=== PATIENT | male | born 1975 | race Caucasian/White ===

== ENCOUNTER 2017-03-11 16:48 | Emergency (ER) | payer OTHER ==
[~2017-03-11] VITALS: Ht 167.6 cm; Wt 80.0 kg
[~2017-03-11 16:48] MED LIST: ACET-141 GTB; ACET-2047 GTB; ATEN-51 GTB; BISA10SU58 PR; CRAN425C GTB; DOCU-144 GTB; HYDR-3498 GTB; KEP100S GTB; LORA1TAB IM*; MAGN400O4 GTB; NA P118E PR; PHEN100O4 GTB; SYN15 GTB; TRAZ50TA18 GTB
[2017-03-11 16:58] VITALS: Ht 167.6 cm; Wt 80.0 kg
[2017-03-11] MEDS ORDERED: SOD CHLORIDE 0.9% 1,000 ML IV STA (17:09)
[2017-03-11] MEDS ORDERED: AMLO2.5T78 GTB (17:32)
[2017-03-11] MEDS ORDERED: TOPI25TA38 GTB (17:33)
[2017-03-11] MEDS ORDERED: CHOL10009 GTB (17:34)
[2017-03-11] MEDS ORDERED: KEP100S GTB (17:35)
[2017-03-11] MEDS ORDERED: LEVO75TA65 GTB (17:35)
[2017-03-11] MEDS ORDERED: ACET-2047 GTB (17:36)
--- NOTE | 2017-03-11 17:36 | RADRPT ---
PROCEDURE: XR Chest. CLINICAL INDICATION: Chest pain TECHNIQUE: AP view of the chest was performed. COMPARISON: May 04, 2015 FINDINGS: The cardiomediastinal silhouette is within normal limits. The lungs are clear. No signs of pleural f luid or pneumothorax are seen. The osseous structures and soft tissues are unremarkable. IMPRESSION: No evidence for active cardiopulmonary disease. No interval change. RPTAT: QQ .Radha Stephens MD, MD Date Time Electronically viewed and signed by .Radha Stephens MD, on 03/11/2017 17:35 .F/
[2017-03-11] MEDS ORDERED: ACET-141 PO (17:37)
[2017-03-11] MEDS ORDERED: LEVETIRACETAM 1000 MG (PMX) 100 ML IVPB ONE (18:00)
[2017-03-11 18:08] LABS: BASOPHILS % 0.1 % (0.0-2.0); HEMATOCRIT 47.7 % (42.0-52.0); HEMOGLOBIN 17.4 g/dl (14.0-18.0); LYMPHOCYTES # 0.6 10^3/ul (0.8-2.9); MEAN CORPUSCULAR HEMOGLOBIN 33.7 pg (29.0-33.0); MEAN CORPUSCULAR HGB CONC 36.5 g/dl (32.0-37.0); MEAN CORPUSCULAR VOLUME 92.4 fl (82.0-101.0); MEAN PLATELET VOLUME 10.5 fl (7.4-10.4); MONOCYTE # 0.7 10^3/ul (0.3-0.9); MONOCYTES % 6.8 % (0.0-11.0); NEUTROPHILS % 86.8 % (39.0-77.0); PLATELET COUNT 190 10^3/UL (140-415); RED BLOOD COUNT 5.16 10^6/ul (4.70-6.10); RED CELL DISTRIBUTION WIDTH 12.2 % (11.5-14.5); WHITE BLOOD COUNT 10.3 10^3/ul (4.8-10.8)
[2017-03-11 18:26] LABS: INR 0.99; PROTIME 13.1 Sec (12.2-14.2)
[2017-03-11 18:29] LABS: PARTIAL THROMBOPLASTIN TIME 31.9 Sec (25.0-35.0)
[2017-03-11 18:30] LABS: ALANINE AMINOTRANSFERASE 24 IU/L (13-69); ALBUMIN 4.2 g/dl (3.3-4.9); ALBUMIN/GLOBULIN RATIO 1.13; ALKALINE PHOSPHATASE 103 IU/L (42-121); ANION GAP 16 (8-16); ASPARTATE AMINO TRANSFERASE 28 IU/L (15-46); BILIRUBIN,INDIRECT 0.7 mg/dl (0-1.1); BILIRUBIN,TOTAL 0.7 mg/dl (0.2-1.3); BLOOD UREA NITROGEN 16 mg/dl (7-20); CALCIUM 9.1 mg/dl (8.4-10.2); CARBON DIOXIDE 20 mmol/L (21-31); CHLORIDE 109 mmol/L (97-110); CREATININE 0.54 mg/dl (0.61-1.24); GLUCOSE 167 mg/dl (70-220); POTASSIUM 3.7 mmol/L (3.5-5.1); SODIUM 141 mmol/L (135-144); TOTAL PROTEIN 7.9 g/dl (6.1-8.1)
[2017-03-11 18:41] LABS: B-TYPE NATRIURETIC PEPTIDE 104 PG/ML (0-125); TROPONIN-I < 0.012 ng/ml (0.00-0.12)
--- NOTE | 2017-03-11 19:16 | ERD ---
ER Documentation Chief Complaint Date/Time DATE: 03/11/17 TIME: 19:13 Chief Complaint Seizue, withnessed by sister ARLIN This is a 41-year-old male with a history of previous anoxic brain injury, and residual neuro deficits who presents to the emergency room for evaluation of seizures. The patient does have a history of seizures and is on Dilantin at his nursing facility. The patient had a seizure which was witnessed by his sister today the last approximately 1 minute which was described as a generalized tonic-clonic seizure. The patient's sister is unsure whether this patient is getting his Dilantin or not ROS All systems reviewed and are negative except as per history of present illness. Medications Home Meds Reported Medications Acetaminophen* (Acetaminophen*) 500 MG Extra Strength Tablet, 1000 MG PO Q4 Y for MODERATE PAIN LEVEL 4-6, TAB 03/11/17 Acetaminophen* (Acetaminophen*) 650 Mg Tablet, 650 MG GTB Q4 Y for MILD PAIN LEVEL 1-3, #30 TAB 03/11/17 Levetiracetam* (Keppra* (Ped)) 100 Mg/Ml Liq, 1000 MG GTB BID for 30 Days, BOTTLE 03/11/17 Levothyroxine Sodium* (Levoxyl*) 75 Mcg Tablet, 75 MCG GTB BEFORE BREAKFAST, # 30 TAB 03/11/17 Cholecalciferol (Vitamin D3) 1,000 Unit Capsule, 1000 UNIT GTB DAILY, CAP 03/11/17 Topiramate* (Topamax*) 25 Mg Tablet, 25 MG GTB BID, TAB 03/11/17 Amlodipine Besylate* (Amlodipine Besylate*) 2.5 Mg Tablet, 2.5 MG GTB DAILY, # 30 TAB 03/11/17 Acetaminophen* (Acetaminophen*) 650 Mg Tablet, 650 MG GTB BID Y for PAIN AND OR ELEVATED TEMP, TAB 05/04/15 Trazodone Hcl* (Trazodone Hcl*) 50 Mg Tablet, 25 MG GTB HS, TAB 05/04/15 Hydrocodone Bit-Acetaminophen* ([place]*) 5-325 Mg Tab, 1 TAB GTB Q8 Y for PAIN, TAB 05/04/15 Magnesium Hydroxide* (Milk Of Magnesia*) 400 Mg/5 Ml Oral.susp, 30 ML GTB DAILY Y for CONSTIPATION, ML 05/04/15 Na Phos,M-B/Na Phos,Di-Ba* (Fleet* Enema) 118 Ml Enema, 118 ML IL Q48H Y for CONSTIPATION, ENEMA 05/04/15 Bisacodyl* (Dulcolax*) 10 Mg/Supp.rect Supp.rect, 10 MG IL Q24H Y for CONSTIPATION, SUPP.RECT 05/04/15 Cranberry Extract (Cranberry) 425 Mg Capsule, 425 MG GTB TID 05/04/15 Docusate Sodium* (Colace*) 100 Mg Capsule, 200 MG GTB QHS, CAP 05/04/15 Lorazepam* (Lorazepam*) 1 Mg Tablet, 1 MG IM* Q6 Y for SEIZURES, TAB 05/04/15 Atenolol* (Atenolol*) 25 Mg Tablet, 25 MG GTB BID, TAB 05/04/15 Discontinued Reported Medications Acetaminophen* (Acetaminophen*) 500 MG Extra Strength Tablet, 500 MG GTB Q4H Y for PAIN AND OR ELEVATED TEMP, TAB 05/04/15 Acetaminophen* (Acetaminophen*) 650 Mg Tablet, 650 MG GTB Q6 Y for PAIN AND OR ELEVATED TEMP, TAB 05/04/15 Levothyroxine Sodium* (Synthroid*) 150 Mcg Tablet, 150 MCG GTB AC BREAKFAST, TAB 05/04/15 Levetiracetam* (Keppra* (Ped)) 100 Mg/Ml Liq, 500 MG GTB BID for 30 Days, BOTTLE 05/04/15 Phenytoin* (Dilantin* Susp) 100 Mg/4 Ml Oral.susp, 300 MG GTB DAILY for 30 Days , BOTTLE 05/04/15 Allergies Allergies: Coded Allergies: No Known Drug Allergy (Verified Allergy, Intermediate, NONE, 03/11/17) PMhx/Soc History of Surgery: Yes (GTUBE PLACEMENT) Anesthesia Reaction: No Hx Neurological Disorder: Yes (SEIZURES, ) Hx Respiratory Disorders: No Hx Cardiac Disorders: No Hx Psychiatric Problems: No Hx Miscellaneous Medical Probl: No Hx Alcohol Use: Yes Hx Substance Use: Yes (ALCOHOLIC) Hx Tobacco Use: Yes Smoking Status: Former smoker Physical Exam Vitals Vital Signs Date Time Temp Pulse Resp B/P Pulse Ox O2 Delivery O2 Flow Rate FiO2 03/11/17 19:00 76 21 114/86 100 Room Air 03/11/17 18:30 81 22 119/93 99 Room Air 03/11/17 16:58 97.8 88 20 107/83 99 Physical Exam INITIAL VITAL SIGNS: Reviewed by me GENERAL: The patient frail-appearing male, mild contractures of the upper and lower extremities, HEENT: Pupils equal, round, and reactive to light. EOMI. There is no scleral icterus. NECK: Tracheostomy scar, C-spine is soft and supple, there is no meningismus. There is no cervical lymphadenopathy. LUNGS: Clear to auscultation bilaterally. There are no rales, wheezes or rhonchi. HEART: Regular rate and rhythm, no murmurs, clicks, rubs or gallops. ABDOMEN: PEG tube, soft, non-tender, non-distended. There are bowel sounds in all four quadrants. No rebound or guarding. EXTREMITIES: There is no peripheral cyanosis or edema. No focal swelling or erythema. NEUROLOGICAL: The patient moves all four extremities with 5/5 strength. Cranial nerves II - XII are intact. Normal gait. Alert and oriented SKIN: There is no apparent rash or petechiae. HEME/LYMPHATIC: There is no evidence of excessive bruising or lymphedema. PSYCHIATRIC: The patient does not appear anxious or depressed. Result Diagram: 03/11/17 1755 03/11/17 175 Results 24 hrs Laboratory Tests Test 03/11/17 17:55 White Blood Count 10.310^3/ul Red Blood Count 5.1610^6/ul Hemoglobin 17.4g/dl Hematocrit 47.7% Mean Corpuscular Volume 92.4fl Mean Corpuscular Hemoglobin 33.7pg Mean Corpuscular Hemoglobin Concent 36.5g/dl Red Cell Distribution Width 12.2% Platelet Count 47394^3/UL Mean Platelet Volume 10.5fl Neutrophils % 86.8% Lymphocytes % 6.0% Monocytes % 6.8% Eosinophils % 0.0% Basophils % 0.1% Nucleated Red Blood Cells % 0.0/100WBC Neutrophils # (Manual) 8.910^3/ul Lymphocytes # 0.610^3/ul Monocytes # 0.710^3/ul Eosinophils # 0.010^3/ul Basophils # 0.010^3/ul Nucleated Red Blood Cells # 0.010^3/ul Prothrombin Time 13.1Sec Prothrombin Time Ratio 1.0 INR International Normalized Ratio 0.99 Activated Partial Thromboplast Time 31.9Sec Sodium Level 141mmol/L Potassium Level 3.7mmol/L Chloride Level 109mmol/L Carbon Dioxide Level 20mmol/L Anion Gap 16 Blood Urea Nitrogen 16mg/dl Creatinine 0.54mg/dl Glucose Level 167mg/dl Lactic Acid Level 2.2mmol/L Calcium Level 9.1mg/dl Total Bilirubin 0.7mg/dl Direct Bilirubin 0.00mg/dl Indirect Bilirubin 0.7mg/dl Aspartate Amino Transf (AST/SGOT) 28IU/L Alanine Aminotransferase (ALT/SGPT) 24IU/L Alkaline Phosphatase 103IU/L Troponin I < 0.012ng/ml B-Type Natriuretic Peptide 104PG/ML Total Protein 7.9g/dl Albumin 4.2g/dl Globulin 3.70g/dl Albumin/Globulin Ratio 1.13 Phenytoin (Dilantin) Level < 3.0ug/ml Current Medications Medications (Trade) Dose Ordered Sig/Nahomy Route PRN Reason Start Time Stop Time Status Last Admin Dose Admin Sodium Chloride 1,000 ml @ 1,000 mls/hr Q1H STAT IV 03/11/17 17:09 03/11/17 18:08 DC 03/11/17 18:00 Levetiracetam (Keppra 1,000mg/ 100ml (Pmx)) 100 ml @ 400 mls/hr ONCE ONCE IVPB 03/11/17 18:00 03/11/17 18:14 DC 03/11/17 18:43 Procedures/MDM Chest X-ray 1V Interpreted by me: Soft Tissue: No acute abnormalities Bones: No acute abnormalities Mediastinum/Cardiac Silhouette/Lungs: [No acute abnormalities] This 41-year-old male presents to the ER for evaluation of seizure activity. The patient does have a history of epilepsy and does suffer from a previous anoxic brain injury. The patient is supposed to be taking Dilantin. I did check her Dilantin levels however they are subtherapeutic. The patient was given 1 g of Keppra in the emergency room prior to his Dilantin level returning. The patient has had no seizure activity in the emergency room. The patient will be discharged at this time back to his nursing facility with instructions to the facility to get this patient's Dilantin as scheduled. Departure Diagnosis: Primary Impression: Seizure disorder Additional Impressions: Developmental delay Subtherapeutic serum dilantin level Condition: Stable AL FORD DO Mar 11, 2017 19:16
[2017-03-11 20:37] VITALS: BP 113/87; PULSE 75; RESP 22; TEMP 97.8
== END 2017-03-11 21:09 | disposition home or self-care (01) ==
LOC: E/R 17:18
DX: G40.909 Epilepsy, unspecified, not intractable, without status epilepticus (principal); R79.1 Abnormal coagulation profile; Z87.891 Personal history of nicotine dependence
CPT/HCPCS: 36415; 71010; 80053; 80185; 83605; 83880; 84484; 85025; 85610; 85730; 96374; J1953; J7030; Z7502

== ENCOUNTER 2017-03-13 23:37 | Inpatient (IN) | payer OTHER ==
[~2017-03-13] VITALS: Ht 167.6 cm; Wt 77.4 kg
[~2017-03-13 23:37] MED LIST changes: -ACET-141 GTB; +ACET-141 PO; +AMLO2.5T78 GTB; +CHOL10009 GTB; +LEVO75TA65 GTB; -PHEN100O4 GTB; -SYN15 GTB; +TOPI25TA38 GTB
[2017-03-13] MEDS ORDERED: SOD CHLORIDE 0.9% 500 ML IV STA (23:40)
[2017-03-13] MEDS ORDERED: LEVETIRACETAM 1000 MG (PMX) 100 ML IVPB STA (23:40)
[2017-03-14] VITALS (9 sets, daily range): BP systolic 122–134; BP diastolic 78–83; PULSE 64–100; RESP 16–22; TEMP 100.8; Ht 167.6 cm; Wt 77.4 kg
[2017-03-14 01:03] LABS: WHITE BLOOD COUNT 9.7 10^3/ul (4.8-10.8)
[2017-03-14 01:04] LABS: BASOPHILS % 0.2 % (0.0-2.0); EOSINOPHILS # 0.1 10^3/ul (0.0-0.5); EOSINOPHILS % 0.5 % (0.0-7.0); HEMATOCRIT 46.1 % (42.0-52.0); HEMOGLOBIN 16.7 g/dl (14.0-18.0); LYMPHOCYTES # 1.7 10^3/ul (0.8-2.9); LYMPHOCYTES % 17.6 % (15.0-51.0); MEAN CORPUSCULAR HEMOGLOBIN 33.7 pg (29.0-33.0); MEAN CORPUSCULAR HGB CONC 36.2 g/dl (32.0-37.0); MEAN CORPUSCULAR VOLUME 92.9 fl (82.0-101.0); MONOCYTE # 1.4 10^3/ul (0.3-0.9); MONOCYTES % 14.2 % (0.0-11.0); PLATELET COUNT 180 10^3/UL (140-415); POSITIVE DIFF @See below; RED BLOOD COUNT 4.96 10^6/ul (4.70-6.10); RED CELL DISTRIBUTION WIDTH 11.9 % (11.5-14.5)
[2017-03-14 01:09] LABS: MEAN PLATELET VOLUME 12.7 fl (7.4-10.4)
[2017-03-14 01:22] LABS: CREATININE 0.56 mg/dl (0.61-1.24); POTASSIUM 4.2 mmol/L (3.5-5.1)
[2017-03-14] MEDS ORDERED: PHENYTOIN 500 MG in SOD CHLORIDE 0.9% 100 ML IV ONE (02:30)
--- NOTE | 2017-03-14 05:38 | ERD ---
ER Documentation Chief Complaint Date/Time DATE: 03/14/17 TIME: 05:32 Chief Complaint Sent from [facility] for tonic-clonic sz witnessed less than 1 min HPI This 41-year-old male was sent from his facility because staff noticed generalized tonic-clonic seizure lasting less than 1 minute. No other reports of any other symptoms or abnormalities reported. Patient is nonverbal at baseline. He is on Keppra and Dilantin for his seizure disorder. No trauma reported. ROS Unobtainable Medications Home Meds Reported Medications Acetaminophen* (Acetaminophen*) 500 MG Extra Strength Tablet, 1000 MG PO Q4 Y for MODERATE PAIN LEVEL 4-6, TAB 03/11/17 Acetaminophen* (Acetaminophen*) 650 Mg Tablet, 650 MG GTB Q4 Y for MILD PAIN LEVEL 1-3, #30 TAB 03/11/17 Levetiracetam* (Keppra* (Ped)) 100 Mg/Ml Liq, 1000 MG GTB BID for 30 Days, BOTTLE 03/11/17 Levothyroxine Sodium* (Levoxyl*) 75 Mcg Tablet, 75 MCG GTB BEFORE BREAKFAST, # 30 TAB 03/11/17 Cholecalciferol (Vitamin D3) 1,000 Unit Capsule, 1000 UNIT GTB DAILY, CAP 03/11/17 Topiramate* (Topamax*) 25 Mg Tablet, 25 MG GTB BID, TAB 03/11/17 Amlodipine Besylate* (Amlodipine Besylate*) 2.5 Mg Tablet, 2.5 MG GTB DAILY, # 30 TAB 03/11/17 Acetaminophen* (Acetaminophen*) 650 Mg Tablet, 650 MG GTB BID Y for PAIN AND OR ELEVATED TEMP, TAB 05/04/15 Trazodone Hcl* (Trazodone Hcl*) 50 Mg Tablet, 25 MG GTB HS, TAB 05/04/15 Hydrocodone Bit-Acetaminophen* ([place]*) 5-325 Mg Tab, 1 TAB GTB Q8 Y for PAIN, TAB 05/04/15 Magnesium Hydroxide* (Milk Of Magnesia*) 400 Mg/5 Ml Oral.susp, 30 ML GTB DAILY Y for CONSTIPATION, ML 05/04/15 Na Phos,M-B/Na Phos,Di-Ba* (Fleet* Enema) 118 Ml Enema, 118 ML AL Q48H Y for CONSTIPATION, ENEMA 05/04/15 Bisacodyl* (Dulcolax*) 10 Mg/Supp.rect Supp.rect, 10 MG AL Q24H Y for CONSTIPATION, SUPP.RECT 05/04/15 Cranberry Extract (Cranberry) 425 Mg Capsule, 425 MG GTB TID 05/04/15 Docusate Sodium* (Colace*) 100 Mg Capsule, 200 MG GTB QHS, CAP 05/04/15 Lorazepam* (Lorazepam*) 1 Mg Tablet, 1 MG IM* Q6 Y for SEIZURES, TAB 05/04/15 Atenolol* (Atenolol*) 25 Mg Tablet, 25 MG GTB BID, TAB 05/04/15 Discontinued Reported Medications Acetaminophen* (Acetaminophen*) 500 MG Extra Strength Tablet, 500 MG GTB Q4H Y for PAIN AND OR ELEVATED TEMP, TAB 05/04/15 Acetaminophen* (Acetaminophen*) 650 Mg Tablet, 650 MG GTB Q6 Y for PAIN AND OR ELEVATED TEMP, TAB 05/04/15 Levothyroxine Sodium* (Synthroid*) 150 Mcg Tablet, 150 MCG GTB AC BREAKFAST, TAB 05/04/15 Levetiracetam* (Keppra* (Ped)) 100 Mg/Ml Liq, 500 MG GTB BID for 30 Days, BOTTLE 05/04/15 Phenytoin* (Dilantin* Susp) 100 Mg/4 Ml Oral.susp, 300 MG GTB DAILY for 30 Days , BOTTLE 05/04/15 Allergies Allergies: Coded Allergies: No Known Drug Allergy (Verified Allergy, Intermediate, NONE, 03/11/17) PMhx/Soc History of Surgery: Yes (GTUBE PLACEMENT) Anesthesia Reaction: No Hx Neurological Disorder: Yes (Encepalopathy, TBI, SE) Hx Respiratory Disorders: Yes (Respiratory Failure) Hx Cardiac Disorders: No Hx Psychiatric Problems: Yes (Major Depressive Disorder, Anxiety) Hx Alcohol Use: No Hx Substance Use: No Hx Tobacco Use: Yes Smoking Status: Never smoker Physical Exam Vitals Vital Signs Date Time Temp Pulse Resp B/P Pulse Ox O2 Delivery O2 Flow Rate FiO2 03/14/17 04:30 108 18 121/86 100 Room Air 03/14/17 02:31 98.2 102 18 128/83 99 Room Air 03/13/17 23:38 98.7 106 18 129/83 97 Physical Exam Const: [] Head: Atraumatic Eyes: Normal Conjunctiva ENT: Normal External Ears, Nose and Mouth. Neck: Full range of motion..~ No meningismus. Resp: Clear to auscultation bilaterally Cardio: Regular rate and rhythm, no murmurs Abd: Soft, non tender, non distended. Normal bowel sounds Skin: No petechiae or rashes Back: No midline or flank tenderness Ext: No cyanosis, or edema Neur: Awake and alert Psych: Normal Mood and Affect Result Diagram: 03/14/17 0010 03/14/17 0010 Results 24 hrs Laboratory Tests Test 03/14/17 00:10 03/14/17 00:25 White Blood Count 9.710^3/ul Red Blood Count 4.9610^6/ul Hemoglobin 16.7g/dl Hematocrit 46.1% Mean Corpuscular Volume 92.9fl Mean Corpuscular Hemoglobin 33.7pg Mean Corpuscular Hemoglobin Concent 36.2g/dl Red Cell Distribution Width 11.9% Platelet Count 59399^3/UL Mean Platelet Volume 12.7fl Neutrophils % 67.0% Lymphocytes % 17.6% Monocytes % 14.2% Eosinophils % 0.5% Basophils % 0.2% Nucleated Red Blood Cells % 0.0/100WBC Neutrophils # (Manual) 6.510^3/ul Lymphocytes # 1.710^3/ul Monocytes # 1.410^3/ul Eosinophils # 0.110^3/ul Basophils # 0.010^3/ul Nucleated Red Blood Cells # 0.010^3/ul Sodium Level 137mmol/L Potassium Level 4.2mmol/L Chloride Level 103mmol/L Carbon Dioxide Level 23mmol/L Anion Gap 15 Blood Urea Nitrogen 13mg/dl Creatinine 0.56mg/dl Glucose Level 95mg/dl Calcium Level 9.0mg/dl Phenytoin (Dilantin) Level < 3.0ug/ml Bedside Glucose 108mg/dL Current Medications Medications (Trade) Dose Ordered Sig/Nahomy Route PRN Reason Start Time Stop Time Status Last Admin Dose Admin Sodium Chloride 500 ml @ 500 mls/hr Q1H STAT IV 03/13/17 23:40 03/14/17 00:39 DC 03/14/17 00:18 Levetiracetam 100 ml @ 400 mls/hr ONCE STAT IVPB 03/13/17 23:40 03/13/17 23:54 DC 03/14/17 00:44 Phenytoin/Sodium Chloride (Dilantin/NS) 110 ml @ 220 mls/hr ONCE ONCE IV 03/14/17 02:30 03/14/17 02:59 DC 03/14/17 02:31 Procedures/MDM Recurrent seizure with subtherapeutic Dilantin level. Patient did not seize in the emergency room and had stable vital signs. He was loaded with a gram of Keppra and 1/2 g of Dilantin. Going to discharge him back to his facility with laboratories followed by his primary care doctor or neurologist with instructions to contact or see them within the next day or 2. Departure Diagnosis: Primary Impression: Subtherapeutic phenytoin level Additional Impression: Seizure Condition: Stable Patient Instructions: Seizure, Recurrent [Adult] Additional Instructions: Call your primary care doctor TOMORROW for an appointment during the next 1-2 days.See the doctor sooner or return here if your condition worsens before your appointment time. QUOC BRODY DO Mar 14, 2017 05:38
[2017-03-14] MEDS ORDERED: SODIUM CHLORIDE 0.9% 1L BAG IV* STA (06:34)
[2017-03-14] MEDS ORDERED: CEFEPIME 2GM/50 ML (PMX) 50 ML IVPB ONE (07:00)
--- NOTE | 2017-03-14 07:17 | RADRPT ---
PROCEDURE: Chest Radiograph. CLINICAL INDICATION: Sepsis TECHNIQUE: Single frontal chest radiograph. COMPARISON: Chest radiograph 03/11/2017 FINDINGS: The patient is moderately rotated. Heart size is poorly evaluated. The cardiomediastinal silhouette is grossly within normal limits. Lung volumes are moderately decreased in there is basilar atelecta sis and central compressive changes. Low lung volumes limit evaluation for confluent infiltrate.. The bones are intact. IMPRESSION: 1. Low lung volumes with basilar atelectasis and central compressive changes. RPTAT: HJBF .Jeff Ng MD, MD Date Time Electronically viewed and signed by .Jeff Ng MD, on 03/14/2017 07:16 .B/
[2017-03-14] MEDS ORDERED: ONDANSETRON 4 MG INJ IV PRN ×2 (07:30→09:30)
[2017-03-14] MEDS ORDERED: ACETAMINOPHEN 325 MG TAB PO PRN (07:30)
[2017-03-14 08:09] LABS: ADD UMIC NO; UR ASCORBIC ACID NEGATIVE (NEGATIVE); UR BILIRUBIN (Dip) NEGATIVE (NEGATIVE); UR BLOOD (Dip) NEGATIVE (NEGATIVE); UR CLARITY CLEAR (CLEAR); UR COLOR YELLOW (YELLOW); UR GLUCOSE (Dip) NEGATIVE (NEGATIVE); UR KETONES (Dip) NEGATIVE (NEGATIVE); UR LEUKOCYTE ESTERASE (Dip) NEGATIVE Leu/ul (NEGATIVE); UR NITRITE (Dip) NEGATIVE (NEGATIVE); UR SPECIFIC GRAVITY (Dip) 1.009 (1.003-1.030); UR TOTAL PROTEIN (Dip) NEGATIVE (NEGATIVE); UR UROBILINOGEN (Dip) 1+ mg/dL (NEGATIVE)
[2017-03-14] MEDS ORDERED: SOD CHLORIDE 0.9% 1,000 ML IV SCH (09:24)
[2017-03-14] MEDS ORDERED: LORAZEPAM 2 MG INJ ONE (09:29)
[2017-03-14] MEDS ORDERED: HYDROCODONE/APAP (5/325) TAB GTB PRN (09:30)
[2017-03-14] MEDS ORDERED: MAGNESIUM HYDROXIDE 30ML CUP GTB PRN (09:30)
[2017-03-14] MEDS ORDERED: NA PHOSPHATE/BIPHOS 133 ML ENEMA PR PRN (09:30)
[2017-03-14] MEDS ORDERED: NACL 0.9% 3 ML SYG IV SCH (09:30)
[2017-03-14] MEDS ORDERED: morphine 2 MG INJ IV PRN (09:30)
[2017-03-14] MEDS ORDERED: BISACODYL 10 MG SUPP PR PRN (09:30)
[2017-03-14] MEDS: LORAZEPAM 2 MG INJ IV ONE ×2 (09:39→09:44)
--- NOTE | 2017-03-14 09:40 | HP ---
Date/Time of Note Date/Time of Note DATE: 03/14/17 TIME: 09:40 Assessment/Plan VTE Prophylaxis VTE Prophylaxis Intervention: SCD's Lines/Catheters Urinary Cath still in place: No Assessment/Plan Assessment/Plan This is a 41 year old male quadriplegic male admitted with seizures with a sub-therapeutic Dilantin level. 1. Break through Seizure, likely precipitated by subtherapeutic Dilantin level versus possible infectious sources. -Currently patient is having active seizures. He also has a fever. We are going to give Ativan IV now. Patient will be started on 1000 mg IV Keppra twice daily. He had also received a loading dose of Dilantin 500 mg IV in the emergency room. We are going to start Dilantin to 250 mg via G-tube 2 times a day. We will also request a neurology consultation for further recommendations. -Obtain CT brain and EEG study. -Patient will be moved to the telemetry floor for close monitoring. -Keep patient on seizure and aspiration precautions. Obtain Dilantin level in a.m. 2. Febrile illness, unknown etiology. -Obtain pancultures. Start patient on cefepime prophylactically. Antipyretics PRN. 3. 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 -Supportive care. 4. Dysphagia with G-tube feeding. -Due to active seizures, we are going to keep patient n.p.o. at present and will consider starting tube feeding with fiber source in a.m. if there is no further seizure activities. 5. History of respiratory failure previous tracheostomy and closure. Stable saturation in room air. 6. Hypertension. Stable. -Resume home medications 7. Constipation. Stable. -Resume home medications. DVT prophylaxis: SCDs PUD prophylaxis: Pepcid Plan: Patient will be admitted to telemetry. He will be kept on seizure medications and seizure precaution. Patient will have neurology evaluation and will follow recommendations. We will also rule out infectious sources. The rest of the management depend on clinical course, further studies and input from consultants. Approximately 60 minutes was spent on this history and physical. Patient was seen in collaboration with . HPI/ROS Admit Date/Time Admit Date/Time Mar 14, 2017 at 07:23 Hx of Present Illness This is a very unfortunate 41-year-old nonverbal long-term resident with a past medical history of traumatic brain injury followed by anoxic encephalopathy and quadriplegia, G-tube feeding, respiratory failure and tracheostomy which is now closed, seizure disorders, who was brought to the emergency room from [facility] for seizure activity lasted for 2 minutes. In the emergency room, patient was noted with a subtherapeutic Dilantin level and was treated with a loading dose of Dilantin 500 mg IV and 1000 mg IV Keppra. There was no further seizure activities in the emergency room and the plan was to send patient back to long term facility. However, patient developed a fever with a temperature of 101.3 and heart rate 111. Therefore, patient was treated with antibiotics for possible infectious sources and was admitted for further evaluation. Patient was seen in the room 604 and he is currently having active seizure started off with twitching ice, rolling ice to back of head, left upper and lower extremity to chest which then progressed to the whole body and lasted less than 1 minute. His initial labs are unremarkable. ROS Due to patient's current mental status, unable to obtain a 12 point review of system. However, patient does not seem to be in any acute distress other than having active seizures now. PMH/Family/Social Past Medical History See HPI Past Surgical History See HPI Social History Unable to obtain social history at this time. Smoking Status: Former smoker Exam/Review of Systems Vital Signs Vitals Vital Signs Date Time Temp Pulse Resp B/P Pulse Ox O2 Delivery O2 Flow Rate FiO2 03/14/17 08:02 100.8 109 18 122/93 100 Room Air Intake and Output 03/13/17 03/13/17 03/14/17 15:00 23:00 07:00 Intake Total 710 ml Balance 710 ml Exam Exam General: Chronic ill looking male having acute seizures. HEENT: Normocephalic, Atraumatic, No laceration or hematoma; Eyes: PEERL, Conjunctiva clear, Anicteric sclera Neck: Supple without any lymphadenopathy, nontender, no JVD, no carotid bruits, trachea midline, no thyromegaly Cardiac: S1, S2 auscultated, regular rhythm and rate, no mumurs or gallop Pulmonary: Normal respiratory effort. Chest clear to auscultation bilaterally, no adventitious breath sounds GI: Abdomen normal to inspection. Soft, non tender, non- distended, no masses, no rebound tenderness or guarding. Bowel sounds active on all four quadrants Genitourinary: Deferred Extremities: Quadriplegic. Neurologic: Nonverbal with encephalopathy. Skin: Clean,dry, and intact. No ecchymosis, no rashes, or lesions Labs Result Diagram: 03/14/17903/14/179 CAMPOS KEYS NP Mar 14, 2017 09:40
[2017-03-14] MEDS ORDERED: LORAZEPAM 2 MG INJ IV ONE ×2 (10:00)
--- NOTE | 2017-03-14 11:23 | RADRPT ---
PROCEDURE: CT Head without. CLINICAL INDICATION: Sepsis. TECHNIQUE: The study was performed utilizing a multi-slice, multidetector CT scanner. Direct spira l 1 mm axial sections were obtained through the head without the use of intravenous contrast materia l. 1 or more of the following dose reduction techniques were utilized: Automated exposure control, adjustment of the mA and/or kV according to patient's size, iterative reconstruction technique. Co triny and sagittal reformations were obtained. The images were reviewed on a PACS workstation. RADIATION DOSE: CTDIvol: 42.4 mGyDLP: 720.2 mGy-cm COMPARISON: 05/01/2008 FINDINGS: There is no intracranial hemorrhage, extra-axial fluid collection, mass lesion, midline shift or hyd rocephalus. There is moderate prominence of the cerebral sulci, lateral and third ventricles. Ther e is no significant ballooning of the temporal horns. There is mild periventricular and subcortical white matter hypodensity. There is mild arteriosclerotic calcification of the parasellar internal c arotid arteries. The nielsen-white matter differentiation is preserved. The basal cisterns are patent . The midline structures are intact. There is pneumatization of the bilateral petrous apices witho ut evidence of inflammatory changes, normal variant. There is mild hyperostosis frontalis interna, n ormal variant. The orbits, calvarium and extracranial soft tissues are normal in appearance. The vis ualized paranasal sinuses, mastoid air cells and middle ear cavities are normally aerated. IMPRESSION: 1. No acute intracranial abnormality. No intracranial hemorrhage, extra-axial fluid collection, ma ss lesion or hydrocephalous. 2. Moderate peripheral and central cerebral volume loss. 3. Mild periventricular and subcortical white matter hypodensity, likely related to chronic microan giopathic changes. RPTAT: HGAS .Raheel Willingham MD, MD Date Time Electronically viewed and signed by .Raheel Willingham MD, on 03/14/2017 11:19 .S/
[2017-03-14] MEDS ORDERED: PHENYTOIN (100 MG/4 ML) CUP GTB SCH (12:00)
[2017-03-14] MEDS: ATENOLOL 25 MG TAB GTB SCH ×2 (12:07→21:19)
[2017-03-14] MEDS: AMLODIPINE 2.5 MG TAB GTB SCH (12:07)
--- NOTE | 2017-03-14 12:13 | CONS ---
Date/Time of Note Date/Time of Note DATE: 03/14/17 TIME: 12:03 Assessment/Plan Assessment/Plan Chief Complaint/Hosp Course 41 year old male quadriplegic with seizure d/o with G- Tube admitted with breakthrough seizures sub-therapeutic dilantin level. Recommendations: -Additional 500 mg Phenytoin given, as well as Keppra 1 gram load no further seizures since admission -would increase Phenytoin dosing to 200 mg TID, may recheck free and total levels tomorrow continue current dose of Keppra and Topamax if necessary will increase as well -ativan prn seizure activity seizure precautions -infectious work up -will follow Problems: Consultation Date/Type/Reason Admit Date/Time Mar 14, 2017 at 07:23 Date of Consultation: Mar 14, 2017 Type of Consultation: Neurology Reason for Consultation seizure evaluation Referring Provider: CAMPOS KEYS NP Hx of Present Illness 41 year old male quadriplegic non-verbal at baseline , G-Tube with seizure d/o sent from [facility] for seizure activity lasting 2 mins, generalized tonic clonic seizure described. Now back to baseline. Lactic Acid is 1.7 Phenytoin level is less than 3 He is currently on Keppra, Topamax, Dilantin 200 mg BID through G Tube. Head CT: 1. No acute intracranial abnormality. No intracranial hemorrhage, extra-axial fluid collection, mass lesion or hydrocephalous. 2. Moderate peripheral and central cerebral volume loss. 3. Mild periventricular and subcortical white matter hypodensity, likely related to chronic microangiopathic changes. Subjective hx not possible: pt non-verbal, pt critical Social History Smoking Status: Former smoker Exam/Review of Systems Vital Signs Vitals Vital Signs Date Time Temp Pulse Resp B/P Pulse Ox O2 Delivery O2 Flow Rate FiO2 03/14/17 11:51 98.9 90 20 122/83 99 03/14/17 10:35 Room Air Intake and Output 03/13/17 03/13/17 03/14/17 15:00 23:00 07:00 Intake Total 710 ml Balance 710 ml Exam awake and alert briefly tracks examiner unable to follow commands non-verbal CN: CAIN, blinks to threat, right facial asymmetry Motor: some spontaneous movement noted of right arm in plane of the bed otherwise spastic and contracted in all extremities Reflexes: hyperflexic throughout toes upgoing Results Result Diagram: 03/14/17 0010 03/14/17 0010 Results 24 hrs Laboratory Tests Test 03/14/17 00:10 03/14/17 00:25 03/14/17 07:15 03/14/17 09:20 White Blood Count 9.7 Red Blood Count 4.96 Hemoglobin 16.7 Hematocrit 46.1 Mean Corpuscular Volume 92.9 Mean Corpuscular Hemoglobin 33.7 H Mean Corpuscular Hemoglobin Concent 36.2 Red Cell Distribution Width 11.9 Platelet Count 180 Mean Platelet Volume 12.7 #H Neutrophils % 67.0 Lymphocytes % 17.6 Monocytes % 14.2 H Eosinophils % 0.5 Basophils % 0.2 Nucleated Red Blood Cells % 0.0 Neutrophils # (Manual) 6.5 Lymphocytes # 1.7 Monocytes # 1.4 H Eosinophils # 0.1 Basophils # 0.0 Nucleated Red Blood Cells # 0.0 Sodium Level 137 Potassium Level 4.2 Chloride Level 103 Carbon Dioxide Level 23 Anion Gap 15 Blood Urea Nitrogen 13 Creatinine 0.56 L Glucose Level 95 Calcium Level 9.0 Phenytoin (Dilantin) Level < 3.0 L Bedside Glucose 108 Urine Color YELLOW Urine Clarity CLEAR Urine pH 7.0 Urine Specific [place] 1.009 Urine Ketones NEGATIVE Urine Nitrite NEGATIVE Urine Bilirubin NEGATIVE Urine Urobilinogen 1+ H Urine Leukocyte Esterase NEGATIVE Urine Hemoglobin NEGATIVE Urine Glucose NEGATIVE Urine Total Protein NEGATIVE Lactic Acid Level 1.7 1.9 Medications Medications Current Medications Sodium Chloride (NS) 1,000 ml @ 80 mls/hr [id number] IV Last administered on t 09:55; Admin Dose 80 MLS/HR; Start 03/14/17 at 09:24 Ondansetron HCl (Zofran Inj) 4 mg Q6H PRN IV NAUSEA AND/OR VOMITING; Start 03/14 at 09:30 Morphine Sulfate (morphine) 2 mg Q4H PRN IV SEVERE PAIN LEVEL 7-10; Start at 09:30 Amlodipine Besylate (Norvasc) 2.5 mg DAILY GTB ; Start 03/14/17 at 10:00 Atenolol (Tenormin) 25 mg BID GTB ; Start 03/14/17 at 10:00 Bisacodyl (Dulcolax Supp) 10 mg Q24H PRN [place] CONSTIPATION; Start 03/14/17 at 09: 30 Cholecalciferol (Vitamin D) 1,000 unit DAILY GTB ; Start 03/15/17 at 09:00 Acetaminophen/ Hydrocodone Bitart ([place] (5/325)) 1 tab Q8 PRN GTB PAIN; Start 03/14/17 at 09:30 Magnesium Hydroxide (Milk Of Mag) 30 ml DAILY PRN GTB CONSTIPATION; Start at 09:30 Sodium Biphosphate/ Sodium Phosphate (Fleet Enema) 118 ml Q48H PRN [place] CONSTIPATION; Start 03/14/17 at 09:30 Topiramate (Topamax) 25 mg BID GTB ; Start 03/14/17 at 12:00 Trazodone HCl 25 mg 25 mg HS GTB ; Start 03/14/17 at 21:00 Levetiracetam (Keppra 1,000mg/ 100ml (Pmx)) 100 ml @ 400 mls/hr Q12 IVPB ; Start 03/14/17 at 10:30 Lorazepam 1 mg 1 mg Q2H PRN IV SEIZURE; Start 03/14/17 at 09:30 Cefepime HCl (Maxipime 1gm/50 ml (Pmx)) 50 ml @ 100 mls/hr Q12 IVPB ; Start 03/14/17 at 21:00 Phenytoin (Dilantin Susp Cup) 200 mg BID GTB ; Start 03/14/17 at 12:00 CED CALDWELL MD Mar 14, 2017 12:13
[2017-03-14] MEDS: LEVETIRACETAM 1000 MG (PMX) 100 ML IVPB SCH ×2 (13:36→21:18)
[2017-03-14] MEDS: TOPIRAMATE 25 MG TAB GTB SCH ×2 (13:37→21:18)
[2017-03-14] MEDS: PHENYTOIN (100 MG/4 ML) CUP GTB SCH ×2 (13:37→21:18)
[2017-03-14] MEDS ORDERED: FAMOTIDINE 20 MG TAB PO SCH (14:00)
--- NOTE | 2017-03-14 20:55 | PRO ---
DATE OF PROCEDURE: 03/14/2017 PROCEDURE PERFORMED: EEG. INDICATION: Patient is a 41-year-old gentleman with history of seizures, taking Dilantin, Topamax, Keppra, along with other medications for thyroid problem and hypertension. DESCRIPTION OF PROCEDURE: Routine EEG was recorded digitally. Scalp to scalp and scalp to ear montages were recorded and reviewed. All impedances were measured and recorded. Cap CP electrodes were placed in accordance to International 10-20 system of electrode placement. Slow amplitude background activity was seen throughout the recording predominantly of 4-6 cycles per second. Photic stimulation produces no definite driving. Predominantly on the right side sharp wave activity is also noted frontotemporal central observed at times about every 1 or several seconds. this activity seems to have triphasic morphology and at times seen also in smaller amplitude on the left side. These triphasic waves may have anterior to posterior lag. No signs of ongoing electrographic seizures. IMPRESSION: Abnormal study secondary to presence of more or less rhythmical every half seconds to every few seconds sharp waves with triphasic morphology with some right-sided predominance, but at times generalized. This activity given patient's history of seizures could be epileptogenic and correlation with imaging predominantly right frontotemporal central areas is advisable. The patient 's clinical history otherwise unknown to me. If he has any abnormalities which could produce triphasic waves, such as hepatic encephalopathy or uremic encephalopathy please correlate as well. Clearly antiepileptic coverage is advisable. Again described activity does not reflect ongoing generalized electrographic seizures. Dictated By: Bridger Cheek MD /alan/brook /Document#: [id number] ANKITA
[2017-03-14] MEDS: FAMOTIDINE 20 MG TAB GTB SCH (21:18)
[2017-03-14] MEDS: traZODone 50 MG TAB GTB SCH (21:19)
[2017-03-14] MEDS: CEFEPIME 1GM/50 ML (PMX) 50 ML IVPB SCH (21:19)
[2017-03-15] VITALS (11 sets, daily range): BP systolic 119–137; BP diastolic 79–91; PULSE 64–114; RESP 16–20
[2017-03-15] MEDS: LEVOTHYROXINE 75 MCG TAB GTB SCH (06:46)
[2017-03-15 08:02] LABS: BASOPHILS % 0.2 % (0.0-2.0); HEMATOCRIT 46.4 % (42.0-52.0); HEMOGLOBIN 16.5 g/dl (14.0-18.0); LYMPHOCYTES # 1.1 10^3/ul (0.8-2.9); LYMPHOCYTES % 17.4 % (15.0-51.0); MEAN CORPUSCULAR HEMOGLOBIN 32.7 pg (29.0-33.0); MEAN CORPUSCULAR HGB CONC 35.6 g/dl (32.0-37.0); MEAN CORPUSCULAR VOLUME 91.9 fl (82.0-101.0); MEAN PLATELET VOLUME 10.8 fl (7.4-10.4); MONOCYTE # 0.9 10^3/ul (0.3-0.9); MONOCYTES % 13.1 % (0.0-11.0); NEUTROPHILS % 69.1 % (39.0-77.0); PLATELET COUNT 201 10^3/UL (140-415); RED BLOOD COUNT 5.05 10^6/ul (4.70-6.10); RED CELL DISTRIBUTION WIDTH 12.1 % (11.5-14.5); WHITE BLOOD COUNT 6.5 10^3/ul (4.8-10.8)
[2017-03-15 08:33] LABS: ALBUMIN 3.7 g/dl (3.3-4.9); ALBUMIN/GLOBULIN RATIO 1.02; BILIRUBIN,INDIRECT 0.6 mg/dl (0-1.1); BILIRUBIN,TOTAL 0.6 mg/dl (0.2-1.3); CHOL/HDL RATIO 3.6 RATIO; CREATININE 0.54 mg/dl (0.61-1.24); MAGNESIUM 1.9 mg/dl (1.7-2.5); PHOSPHORUS 2.9 mg/dl (2.5-4.9); POTASSIUM 3.6 mmol/L (3.5-5.1); TOTAL PROTEIN 7.3 g/dl (6.1-8.1)
[2017-03-15 08:58] LABS: THYROID STIMULATING HORMONE 8.18 MIU/L (0.465-4.680)
[2017-03-15] MEDS: PHENYTOIN (100 MG/4 ML) CUP GTB SCH ×3 (09:56→20:12)
[2017-03-15] MEDS: ATENOLOL 25 MG TAB GTB SCH ×2 (09:57→20:12)
[2017-03-15] MEDS: TOPIRAMATE 25 MG TAB GTB SCH ×2 (09:58→20:13)
[2017-03-15] MEDS: AMLODIPINE 2.5 MG TAB GTB SCH (09:58)
[2017-03-15] MEDS: FAMOTIDINE 20 MG TAB GTB SCH ×2 (09:58→20:14)
[2017-03-15] MEDS: CHOLECALCIFEROL 1,000 UNIT TAB GTB SCH (10:01)
[2017-03-15] MEDS: LEVETIRACETAM 1000 MG (PMX) 100 ML IVPB SCH (10:32)
[2017-03-15] MEDS: CEFEPIME 1GM/50 ML (PMX) 50 ML IVPB SCH (10:33)
--- NOTE | 2017-03-15 11:14 | PN ---
Date/Time of Note Date/Time of Note DATE: 03/15/17 TIME: 11:04 Assessment/Plan VTE Prophylaxis VTE Prophylaxis Intervention: SCD's Lines/Catheters IV Catheter Type (from Nrsg): Peripheral IV Urinary Cath still in place: Yes Reason Cath still needed: other (indicate) Assessment/Plan Chief Complaint/Hosp Course 41 yo encephalopathic, retirement resident male transferred for seizure episodes. 1. Break through Seizure, likely precipitated by subtherapeutic Dilantin level versus possible infectious sources. No seizures over 24 hrs.EEG reviewed. -Neuro eval appreciated. Topamax+Dialntin+Keppra -Seizure/aspiration precautions. 2. Fever of unknown etiology. resolved. -F/u cultures. Continue cefepime prophylactically. Antipyretics PRN. 3. 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 -Supportive care. 4. Dysphagia with G-tube feeding. -On [employer] TF. -nutrition consult. 5. History of respiratory failure previous tracheostomy and closure. Stable saturation in room air. 6. Hypertension. Stable. -Continue home medications 7. Constipation. Stable. -Continue home medications. 8.Hypothyroidism. Continue Synthroid. F/u TSH. DVT prophylaxis: SCDs PUD prophylaxis: Pepcid PLAN:Continue current medical amangeemnt. If no further seizures, dc planning back SNF once cleared from neuro. Patient was seen in collaboration with . Problems: Subjective 24 Hr Interval Summary Free Text/Dictation No further seizure episodes. Started on tube feed and toleartes well. Exam/Review of Systems Vital Signs Vitals Vital Signs Date Time Temp Pulse Resp B/P Pulse Ox O2 Delivery O2 Flow Rate FiO2 03/15/17 08:35 105 03/15/17 07:49 98.0 20 137/85 96 03/14/17 10:35 Room Air Intake and Output 03/14/17 03/14/17 03/15/17 14:59 22:59 06:59 Intake Total 150 ml 790 ml 1160 ml Output Total 1000 ml 1800 ml Balance 150 ml -210 ml -640 ml Exam General: Chronic ill looking male HEENT: Normocephalic, Atraumatic, No laceration or hematoma; Eyes: PEERL, Conjunctiva clear, Anicteric sclera Neck: Supple without any lymphadenopathy, nontender, no JVD, no carotid bruits, trachea midline, no thyromegaly Cardiac: S1, S2 auscultated, regular rhythm and rate, no mumurs or gallop Pulmonary: Normal respiratory effort. Chest clear to auscultation bilaterally, no adventitious breath sounds GI: With G-tube feed. Abdomen normal to inspection. Soft, non tender, non- distended, no masses, no rebound tenderness or guarding. Bowel sounds active on all four quadrants Genitourinary: Deferred Extremities: Occasional spontaneous movement on BUEs. Otherwise,contracted x 4 Neurologic: Nonverbal with encephalopathy. Skin: Clean,dry, and intact. No ecchymosis, no rashes, or lesions Results Result Diagram: 03/15/17 0653 03/15/17 0653 Results 24 hrs Laboratory Tests Test 03/14/17 12:30 03/15/17 06:53 Lactic Acid Level 2.0 White Blood Count 6.5 # Red Blood Count 5.05 Hemoglobin 16.5 Hematocrit 46.4 Mean Corpuscular Volume 91.9 Mean Corpuscular Hemoglobin 32.7 Mean Corpuscular Hemoglobin Concent 35.6 Red Cell Distribution Width 12.1 Platelet Count 201 Mean Platelet Volume 10.8 H Neutrophils % 69.1 Lymphocytes % 17.4 Monocytes % 13.1 H Eosinophils % 0.0 Basophils % 0.2 Nucleated Red Blood Cells % 0.0 Neutrophils # (Manual) 4.5 Lymphocytes # 1.1 Monocytes # 0.9 Eosinophils # 0.0 Basophils # 0.0 Nucleated Red Blood Cells # 0.0 Sodium Level 139 Potassium Level 3.6 Chloride Level 106 Carbon Dioxide Level 22 Anion Gap 15 Blood Urea Nitrogen 9 Creatinine 0.54 L Glucose Level 99 Hemoglobin A1c 4.5 Calcium Level 9.0 Phosphorus Level 2.9 Magnesium Level 1.9 Total Bilirubin 0.6 Direct Bilirubin 0.00 Indirect Bilirubin 0.6 Aspartate Amino Transf (AST/SGOT) 24 Alanine Aminotransferase (ALT/SGPT) 22 Alkaline Phosphatase 81 Total Protein 7.3 Albumin 3.7 Globulin 3.60 H Albumin/Globulin Ratio 1.02 Triglycerides Level 91 Cholesterol Level 130 LDL Cholesterol, Calculated 76 HDL Cholesterol 36 Cholesterol/HDL Ratio 3.6 Thyroid Stimulating Hormone (TSH) 8.180 H Phenytoin (Dilantin) Level 9.8 L Medications Medications Current Medications Ondansetron HCl (Zofran Inj) 4 mg Q6H PRN IV NAUSEA AND/OR VOMITING; Start 03/14 at 09:30 Morphine Sulfate (morphine) 2 mg Q4H PRN IV SEVERE PAIN LEVEL 7-10; Start at 09:30 Amlodipine Besylate (Norvasc) 2.5 mg DAILY GTB Last administered on 03/15/17 09 :58; Admin Dose 2.5 MG; Start 03/14/17 at 10:00 Atenolol (Tenormin) 25 mg BID GTB Last administered on 03/15/17 09:57; Admin Dose 25 MG; Start 03/14/17 at 10:00 Bisacodyl (Dulcolax Supp) 10 mg Q24H PRN [place] CONSTIPATION; Start 03/14/17 at 09: 30 Cholecalciferol (Vitamin D) 1,000 unit DAILY GTB Last administered on 03/15/17 10:01; Admin Dose 1,000 UNIT; Start 03/15/17 at 09:00 Acetaminophen/ Hydrocodone Bitart ([place] (5/325)) 1 tab Q8 PRN GTB PAIN; Start 03/14/17 at 09:30 Magnesium Hydroxide (Milk Of Mag) 30 ml DAILY PRN GTB CONSTIPATION; Start at 09:30 Sodium Biphosphate/ Sodium Phosphate (Fleet Enema) 118 ml Q48H PRN [place] CONSTIPATION; Start 03/14/17 at 09:30 Topiramate (Topamax) 25 mg BID GTB Last administered on 03/15/17 09:58; Admin Dose 25 MG; Start 03/14/17 at 12:00 Trazodone HCl 25 mg 25 mg HS GTB Last administered on 03/14/17 21:19; Admin Dose 25 MG; Start 03/14/17 at 21:00 Levetiracetam (Keppra 1,000mg/ 100ml (Pmx)) 100 ml @ 400 mls/hr Q12 IVPB Last administered on 03/15/17 10:32; Admin Dose 400 MLS/HR; Start 03/14/17 at 10:30 Lorazepam 1 mg 1 mg Q2H PRN IV SEIZURE; Start 03/14/17 at 09:30 Cefepime HCl (Maxipime 1gm/50 ml (Pmx)) 50 ml @ 100 mls/hr Q12 IVPB Last administered on 03/15/17 10:33; Admin Dose 100 MLS/HR; Start 03/14/17 at 21:00 Phenytoin (Dilantin Susp Cup) 200 mg TID GTB Last administered on 03/15/17 09: 56; Admin Dose 200 MG; Start 03/14/17 at 13:00 Famotidine (Pepcid) 20 mg BID GTB Last administered on 03/15/17 09:58; Admin Dose 20 MG; Start 03/14/17 at 21:00 CAMPOS KEYS NP Mar 15, 2017 11:14
[2017-03-15] MEDS ORDERED: SOD CHLORIDE 0.9% IVPB STA (11:32)
[2017-03-15] MEDS ORDERED: FOSPHENYTOIN IVPB STA (11:32)
--- NOTE | 2017-03-15 11:32 | CONS ---
Date/Time of Note Date/Time of Note DATE: 03/15/17 TIME: 11:30 Consult Date/Type/Reason Admit Date/Time Mar 14, 2017 at 07:23 Initial Consult Date 03/14/17 Type of Consultation: Neurology Reason for Consultation seizure Ordering Provider: CAMPOS KEYS NP Subjective continues to have partial seizure right arm with fencing posturing right gaze deviation and left UE/LE jerking Objective Vital Signs Date Time Temp Pulse Resp B/P Pulse Ox O2 Delivery O2 Flow Rate FiO2 03/15/17 08:35 105 03/15/17 07:49 98.0 20 137/85 96 03/14/17 10:35 Room Air Intake and Output 03/14/17 03/14/17 03/15/17 15:00 23:00 07:00 Intake Total 150 ml 790 ml 1160 ml Output Total 1000 ml 1800 ml Balance 150 ml -210 ml -640 ml Exam unarousable CAIN right gaze gaze with right arm upraised fencing posturing left arm and leg jerking Results/Medications Result Diagram: 03/15/17 0653 03/15/17 0653 Results 24 hrs Laboratory Tests Test 03/14/17 12:30 03/15/17 06:53 Lactic Acid Level 2.0 White Blood Count 6.5 # Red Blood Count 5.05 Hemoglobin 16.5 Hematocrit 46.4 Mean Corpuscular Volume 91.9 Mean Corpuscular Hemoglobin 32.7 Mean Corpuscular Hemoglobin Concent 35.6 Red Cell Distribution Width 12.1 Platelet Count 201 Mean Platelet Volume 10.8 H Neutrophils % 69.1 Lymphocytes % 17.4 Monocytes % 13.1 H Eosinophils % 0.0 Basophils % 0.2 Nucleated Red Blood Cells % 0.0 Neutrophils # (Manual) 4.5 Lymphocytes # 1.1 Monocytes # 0.9 Eosinophils # 0.0 Basophils # 0.0 Nucleated Red Blood Cells # 0.0 Sodium Level 139 Potassium Level 3.6 Chloride Level 106 Carbon Dioxide Level 22 Anion Gap 15 Blood Urea Nitrogen 9 Creatinine 0.54 L Glucose Level 99 Hemoglobin A1c 4.5 Calcium Level 9.0 Phosphorus Level 2.9 Magnesium Level 1.9 Total Bilirubin 0.6 Direct Bilirubin 0.00 Indirect Bilirubin 0.6 Aspartate Amino Transf (AST/SGOT) 24 Alanine Aminotransferase (ALT/SGPT) 22 Alkaline Phosphatase 81 Total Protein 7.3 Albumin 3.7 Globulin 3.60 H Albumin/Globulin Ratio 1.02 Triglycerides Level 91 Cholesterol Level 130 LDL Cholesterol, Calculated 76 HDL Cholesterol 36 Cholesterol/HDL Ratio 3.6 Thyroid Stimulating Hormone (TSH) 8.180 H Phenytoin (Dilantin) Level 9.8 L Medications Current Medications Ondansetron HCl (Zofran Inj) 4 mg Q6H PRN IV NAUSEA AND/OR VOMITING; Start 03/14 at 09:30 Morphine Sulfate (morphine) 2 mg Q4H PRN IV SEVERE PAIN LEVEL 7-10; Start at 09:30 Amlodipine Besylate (Norvasc) 2.5 mg DAILY GTB Last administered on 03/15/17 09 :58; Admin Dose 2.5 MG; Start 03/14/17 at 10:00 Atenolol (Tenormin) 25 mg BID GTB Last administered on 03/15/17 09:57; Admin Dose 25 MG; Start 03/14/17 at 10:00 Bisacodyl (Dulcolax Supp) 10 mg Q24H PRN [place] CONSTIPATION; Start 03/14/17 at 09: 30 Cholecalciferol (Vitamin D) 1,000 unit DAILY GTB Last administered on 03/15/17 10:01; Admin Dose 1,000 UNIT; Start 03/15/17 at 09:00 Acetaminophen/ Hydrocodone Bitart ([place] (5/325)) 1 tab Q8 PRN GTB PAIN; Start 03/14/17 at 09:30 Magnesium Hydroxide (Milk Of Mag) 30 ml DAILY PRN GTB CONSTIPATION; Start at 09:30 Sodium Biphosphate/ Sodium Phosphate (Fleet Enema) 118 ml Q48H PRN [place] CONSTIPATION; Start 03/14/17 at 09:30 Topiramate (Topamax) 25 mg BID GTB Last administered on 03/15/17 09:58; Admin Dose 25 MG; Start 03/14/17 at 12:00 Trazodone HCl 25 mg 25 mg HS GTB Last administered on 03/14/17 21:19; Admin Dose 25 MG; Start 03/14/17 at 21:00 Levetiracetam (Keppra 1,000mg/ 100ml (Pmx)) 100 ml @ 400 mls/hr Q12 IVPB Last administered on 03/15/17 10:32; Admin Dose 400 MLS/HR; Start 03/14/17 at 10:30 Lorazepam 1 mg 1 mg Q2H PRN IV SEIZURE; Start 03/14/17 at 09:30 Cefepime HCl (Maxipime 1gm/50 ml (Pmx)) 50 ml @ 100 mls/hr Q12 IVPB Last administered on 03/15/17 10:33; Admin Dose 100 MLS/HR; Start 03/14/17 at 21:00 Phenytoin (Dilantin Susp Cup) 200 mg TID GTB Last administered on 03/15/17 09: 56; Admin Dose 200 MG; Start 03/14/17 at 13:00 Famotidine (Pepcid) 20 mg BID GTB Last administered on 03/15/17 09:58; Admin Dose 20 MG; Start 03/14/17 at 21:00 Assessment/Plan Chief Complaint/Hosp Course 41 year old male quadriplegic with seizure d/o with G- Tube admitted with breakthrough seizures sub-therapeutic dilantin level. Level today 9.8 Recommendations: -load additional 500 mg Phenytoin -c/w Phenytoin 200 mg TID -Keppra increased to 1500 mg BID -Topamax increase to 50 mg BID -ativan prn for further seizure activity max 4 mg at once , max 10 mg in 24 hours -seizure precautions infectious work up Problems: CED CALDWELL MD Mar 15, 2017 11:32
[2017-03-15] MEDS: traZODone 50 MG TAB GTB SCH (20:13)
[2017-03-15] MEDS: LEVETIRACETAM 1500 MG (PMX) 100 ML IVPB SCH (20:15)
[2017-03-16] VITALS (12 sets, daily range): BP systolic 102–127; BP diastolic 65–78; PULSE 84–111; RESP 16–20
[2017-03-16] MEDS: LORAZEPAM 2 MG INJ IV PRN ×2 (03:59→12:12)
[2017-03-16] MEDS: LEVOTHYROXINE 75 MCG TAB GTB SCH (07:28)
[2017-03-16 08:26] LABS: BASOPHILS % 0.4 % (0.0-2.0); HEMATOCRIT 47.9 % (42.0-52.0); HEMOGLOBIN 16.8 g/dl (14.0-18.0); LYMPHOCYTES # 1.5 10^3/ul (0.8-2.9); LYMPHOCYTES % 26.6 % (15.0-51.0); MEAN CORPUSCULAR HEMOGLOBIN 33.3 pg (29.0-33.0); MEAN CORPUSCULAR HGB CONC 35.1 g/dl (32.0-37.0); MEAN CORPUSCULAR VOLUME 94.9 fl (82.0-101.0); MEAN PLATELET VOLUME 10.5 fl (7.4-10.4); MONOCYTE # 0.7 10^3/ul (0.3-0.9); NEUTROPHILS % 59.3 % (39.0-77.0); PLATELET COUNT 204 10^3/UL (140-415); RED BLOOD COUNT 5.05 10^6/ul (4.70-6.10); WHITE BLOOD COUNT 5.5 10^3/ul (4.8-10.8)
[2017-03-16 08:42] LABS: CALCIUM 9.2 mg/dl (8.4-10.2); CREATININE 0.54 mg/dl (0.61-1.24); POTASSIUM 3.4 mmol/L (3.5-5.1)
[2017-03-16] MEDS: TOPIRAMATE 25 MG TAB GTB SCH ×2 (08:50→20:13)
[2017-03-16] MEDS: CHOLECALCIFEROL 1,000 UNIT TAB GTB SCH (08:50)
[2017-03-16] MEDS: PHENYTOIN (100 MG/4 ML) CUP GTB SCH ×3 (08:50→20:11)
[2017-03-16] MEDS: ATENOLOL 25 MG TAB GTB SCH ×2 (08:51→20:13)
[2017-03-16] MEDS: LEVETIRACETAM 1500 MG (PMX) 100 ML IVPB SCH ×2 (08:51→20:11)
[2017-03-16] MEDS: AMLODIPINE 2.5 MG TAB GTB SCH (08:51)
[2017-03-16] MEDS: FAMOTIDINE 20 MG TAB GTB SCH ×2 (08:51→20:13)
--- NOTE | 2017-03-16 09:48 | CONS ---
Date/Time of Note Date/Time of Note DATE: 03/16/17 TIME: 09:47 Consult Date/Type/Reason Admit Date/Time Mar 14, 2017 at 07:23 Initial Consult Date 03/14/17 Type of Consultation: Neurology Reason for Consultation seizure Ordering Provider: CAMPOS KEYS NP Subjective one seizure overnight given ativan with resolution drowsy this am Objective Vital Signs Date Time Temp Pulse Resp B/P Pulse Ox O2 Delivery O2 Flow Rate FiO2 03/16/17 08:33 98.0 87 18 102/74 98 03/14/17 10:35 Room Air Intake and Output 03/15/17 03/15/17 03/16/17 15:00 23:00 07:00 Intake Total 1560 ml 1360 ml Output Total 1400 ml 1100 ml Balance 160 ml 260 ml Exam drowsy this morning difficult to arouse no seizures noted Results/Medications Result Diagram: 03/16/17 0725 03/16/17 0725 Results 24 hrs Laboratory Tests Test 03/15/17 11:36 03/16/17 07:25 Phenytoin (Dilantin) Level 9.0 L White Blood Count 5.5 Red Blood Count 5.05 Hemoglobin 16.8 Hematocrit 47.9 Mean Corpuscular Volume 94.9 Mean Corpuscular Hemoglobin 33.3 H Mean Corpuscular Hemoglobin Concent 35.1 Red Cell Distribution Width 12.0 Platelet Count 204 Mean Platelet Volume 10.5 H Neutrophils % 59.3 Lymphocytes % 26.6 Monocytes % 13.0 H Eosinophils % 0.0 Basophils % 0.4 Nucleated Red Blood Cells % 0.0 Neutrophils # (Manual) 3.3 Lymphocytes # 1.5 Monocytes # 0.7 Eosinophils # 0.0 Basophils # 0.0 Nucleated Red Blood Cells # 0.0 Sodium Level 140 Potassium Level 3.4 L Chloride Level 107 Carbon Dioxide Level 22 Anion Gap 14 Blood Urea Nitrogen 11 Creatinine 0.54 L Glucose Level 125 Calcium Level 9.2 Medications Current Medications Ondansetron HCl (Zofran Inj) 4 mg Q6H PRN IV NAUSEA AND/OR VOMITING; Start 03/14 at 09:30 Morphine Sulfate (morphine) 2 mg Q4H PRN IV SEVERE PAIN LEVEL 7-10; Start at 09:30 Amlodipine Besylate (Norvasc) 2.5 mg DAILY GTB Last administered on 03/16/17 08 :51; Admin Dose 2.5 MG; Start 03/14/17 at 10:00 Atenolol (Tenormin) 25 mg BID GTB Last administered on 03/16/17 08:51; Admin Dose 25 MG; Start 03/14/17 at 10:00 Bisacodyl (Dulcolax Supp) 10 mg Q24H PRN [place] CONSTIPATION; Start 03/14/17 at 09: 30 Cholecalciferol (Vitamin D) 1,000 unit DAILY GTB Last administered on 03/16/17 08:50; Admin Dose 1,000 UNIT; Start 03/15/17 at 09:00 Acetaminophen/ Hydrocodone Bitart ([place] (5/325)) 1 tab Q8 PRN GTB PAIN; Start 03/14/17 at 09:30 Magnesium Hydroxide (Milk Of Mag) 30 ml DAILY PRN GTB CONSTIPATION; Start at 09:30 Sodium Biphosphate/ Sodium Phosphate (Fleet Enema) 118 ml Q48H PRN [place] CONSTIPATION; Start 03/14/17 at 09:30 Trazodone HCl (Desyrel) 25 mg HS GTB Last administered on 03/15/17 20:13; Admin Dose 25 MG; Start 03/14/17 at 21:00 Lorazepam (Ativan) 1 mg Q2H PRN IV SEIZURE Last administered on 03/16/17 03:59 ; Admin Dose 1 MG; Start 03/14/17 at 09:30 Phenytoin (Dilantin Susp Cup) 200 mg TID GTB Last administered on 03/16/17 08: 50; Admin Dose 200 MG; Start 03/14/17 at 13:00 Famotidine (Pepcid) 20 mg BID GTB Last administered on 03/16/17 08:51; Admin Dose 20 MG; Start 03/14/17 at 21:00 Topiramate 50 mg 50 mg BID GTB Last administered on 03/16/17 08:50; Admin Dose 50 MG; Start 03/15/17 at 21:00 Levetiracetam (Keppra 1,500mg/ 100ml (Pmx)) 100 ml @ 400 mls/hr Q12 IVPB Last administered on 03/16/17 08:51; Admin Dose 400 MLS/HR; Start 03/15/17 at 21:00 Assessment/Plan Chief Complaint/Hosp Course 41 year old male quadriplegic with seizure d/o with G- Tube admitted with breakthrough seizures sub-therapeutic dilantin level. Level today 9.8 Recommendations: -load additional 500 mg Phenytoin -c/w Phenytoin 200 mg TID -Keppra increased to 1500 mg BID -Topamax increased today to 75 mg BID -ativan prn for further seizure activity max 4 mg at once , max 10 mg in 24 hours -seizure precautions infectious work up Problems: CED CALDWELL MD Mar 16, 2017 09:48
--- NOTE | 2017-03-16 10:47 | PN ---
Date/Time of Note Date/Time of Note DATE: 03/16/17 TIME: 10:41 Assessment/Plan VTE Prophylaxis VTE Prophylaxis Intervention: ambulation, SCD's Lines/Catheters IV Catheter Type (from Nrsg): Peripheral IV Urinary Cath still in place: Yes Reason Cath still needed: other (indicate) Assessment/Plan Chief Complaint/Hosp Course 41 yo encephalopathic, prison resident male transferred for seizure episodes. 1. Break through Seizure, likely precipitated by subtherapeutic Dilantin level -Neuro onboard and seizure meds have been titrated up. Cerebyx+Topamax+Dialntin+ Keppra -Seizure/aspiration precautions. 2. Fever of unknown etiology- most likely likely concurrent. No evidence of infection.Resolved. -No need for abx currently as abx also can alter seizure threshold. F/u cultures. Antipyretics PRN. 3. 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 -Supportive care. 4. Dysphagia with G-tube feeding. -On FiberSource TF. 5. History of respiratory failure previous tracheostomy and closure. Stable saturation in room air. 6. Hypertension. Stable. -Continue home medications 7. Constipation. Stable. -Continue home medications. 8.Hypothyroidism. TSH elevated On Synthroid. Obtain T4 and titrate as indicated. 9.Hypokalemia.Replete and monitor.Obtain mag level. DVT prophylaxis: SCDs PUD prophylaxis: Pepcid PLAN:Continue current seizure management per neuro recs.Dilantin level approaching therapeutic. Patient was seen in collaboration with . Problems: Subjective 24 Hr Interval Summary Free Text/Dictation Patient continued to have breakthrough seizures requiring Ativan overnight. Exam/Review of Systems Vital Signs Vitals Vital Signs Date Time Temp Pulse Resp B/P Pulse Ox O2 Delivery O2 Flow Rate FiO2 03/16/17 08:33 98.0 87 18 102/74 98 03/14/17 10:35 Room Air Intake and Output 03/15/17 03/15/17 03/16/17 14:59 22:59 06:59 Intake Total 1560 ml 1360 ml Output Total 1400 ml 1100 ml Balance 160 ml 260 ml Exam General: Chronic ill looking male HEENT: Normocephalic, Atraumatic, No laceration or hematoma; Eyes: PEERL, Conjunctiva clear, Anicteric sclera Neck: Supple without any lymphadenopathy, nontender, no JVD, no carotid bruits, trachea midline, no thyromegaly Cardiac: S1, S2 auscultated, regular rhythm and rate, no mumurs or gallop Pulmonary: Normal respiratory effort. Chest clear to auscultation bilaterally, no adventitious breath sounds GI: With G-tube feed. Abdomen normal to inspection. Soft, non tender, non- distended, no masses, no rebound tenderness or guarding. Bowel sounds active on all four quadrants Genitourinary: Deferred Extremities: Occasional spontaneous movement on BUEs. Otherwise,contracted x 4 Neurologic: Nonverbal with encephalopathy. Skin: Clean,dry, and intact. No ecchymosis, no rashes, or lesions Results Result Diagram: 03/16/1772403/16/17724 Results 24 hrs Laboratory Tests Test 03/15/17 11:36 03/16/17 07:25 Phenytoin (Dilantin) Level 9.0 L White Blood Count 5.5 Red Blood Count 5.05 Hemoglobin 16.8 Hematocrit 47.9 Mean Corpuscular Volume 94.9 Mean Corpuscular Hemoglobin 33.3 H Mean Corpuscular Hemoglobin Concent 35.1 Red Cell Distribution Width 12.0 Platelet Count 204 Mean Platelet Volume 10.5 H Neutrophils % 59.3 Lymphocytes % 26.6 Monocytes % 13.0 H Eosinophils % 0.0 Basophils % 0.4 Nucleated Red Blood Cells % 0.0 Neutrophils # (Manual) 3.3 Lymphocytes # 1.5 Monocytes # 0.7 Eosinophils # 0.0 Basophils # 0.0 Nucleated Red Blood Cells # 0.0 Sodium Level 140 Potassium Level 3.4 L Chloride Level 107 Carbon Dioxide Level 22 Anion Gap 14 Blood Urea Nitrogen 11 Creatinine 0.54 L Glucose Level 125 Calcium Level 9.2 Medications Medications Current Medications Ondansetron HCl (Zofran Inj) 4 mg Q6H PRN IV NAUSEA AND/OR VOMITING; Start 03/14 at 09:30 Morphine Sulfate (morphine) 2 mg Q4H PRN IV SEVERE PAIN LEVEL 7-10; Start at 09:30 Amlodipine Besylate (Norvasc) 2.5 mg DAILY GTB Last administered on 03/16/17t 08 :51; Admin Dose 2.5 MG; Start 03/14/17 at 10:00 Atenolol (Tenormin) 25 mg BID GTB Last administered on 03/16/17 08:51; Admin Dose 25 MG; Start 03/14/17 at 10:00 Bisacodyl (Dulcolax Supp) 10 mg Q24H PRN [place] CONSTIPATION; Start 03/14/17 at 09: 30 Cholecalciferol (Vitamin D) 1,000 unit DAILY GTB Last administered on 03/16/17 08:50; Admin Dose 1,000 UNIT; Start 03/15/17 at 09:00 Acetaminophen/ Hydrocodone Bitart ([place] (5/325)) 1 tab Q8 PRN GTB PAIN; Start 03/14/17 at 09:30 Magnesium Hydroxide (Milk Of Mag) 30 ml DAILY PRN GTB CONSTIPATION; Start at 09:30 Sodium Biphosphate/ Sodium Phosphate (Fleet Enema) 118 ml Q48H PRN [place] CONSTIPATION; Start 03/14/17 at 09:30 Trazodone HCl (Desyrel) 25 mg HS GTB Last administered on 03/15/17 20:13; Admin Dose 25 MG; Start 03/14/17 at 21:00 Lorazepam (Ativan) 1 mg Q2H PRN IV SEIZURE Last administered on 03/16/17 03:59 ; Admin Dose 1 MG; Start 03/14/17 at 09:30 Phenytoin (Dilantin Susp Cup) 200 mg TID GTB Last administered on 03/16/17 08: 50; Admin Dose 200 MG; Start 03/14/17 at 13:00 Famotidine 20 mg 20 mg BID GTB Last administered on 03/16/17 08:51; Admin Dose 20 MG; Start 03/14/17 at 21:00 Levetiracetam (Keppra 1,500mg/ 100ml (Pmx)) 100 ml @ 400 mls/hr Q12 IVPB Last administered on 03/16/17 08:51; Admin Dose 400 MLS/HR; Start 03/15/17 at 21:00 Topiramate (Topamax) 75 mg BID GTB ; Start 03/16/17 at 21:00 CAMPOS KEYS NP Mar 16, 2017 10:47
[2017-03-16] MEDS ORDERED: POTASSIUM CHLORIDE (SR) 20 MEQ TAB PO STA (10:50)
[2017-03-16] MEDS: traZODone 50 MG TAB GTB SCH (20:13)
[2017-03-17] VITALS (13 sets, daily range): BP systolic 99–159; BP diastolic 64–84; PULSE 76–106; RESP 16–20
[2017-03-17] MEDS: LEVOTHYROXINE 75 MCG TAB GTB SCH (06:15)
[2017-03-17 07:42] LABS: BASOPHILS % 0.3 % (0.0-2.0); HEMATOCRIT 51.3 % (42.0-52.0); HEMOGLOBIN 17.5 g/dl (14.0-18.0); LYMPHOCYTES # 1.4 10^3/ul (0.8-2.9); LYMPHOCYTES % 22.7 % (15.0-51.0); MEAN CORPUSCULAR HEMOGLOBIN 32.6 pg (29.0-33.0); MEAN CORPUSCULAR HGB CONC 34.1 g/dl (32.0-37.0); MEAN CORPUSCULAR VOLUME 95.7 fl (82.0-101.0); MEAN PLATELET VOLUME 10.9 fl (7.4-10.4); MONOCYTE # 0.8 10^3/ul (0.3-0.9); MONOCYTES % 12.1 % (0.0-11.0); NEUTROPHILS % 63.8 % (39.0-77.0); PLATELET COUNT 203 10^3/UL (140-415); RED BLOOD COUNT 5.36 10^6/ul (4.70-6.10); RED CELL DISTRIBUTION WIDTH 12.3 % (11.5-14.5); WHITE BLOOD COUNT 6.3 10^3/ul (4.8-10.8)
[2017-03-17 08:13] LABS: CALCIUM 9.3 mg/dl (8.4-10.2); CREATININE 0.6 mg/dl (0.61-1.24); MAGNESIUM 2.2 mg/dl (1.7-2.5)
[2017-03-17] MEDS: PHENYTOIN (100 MG/4 ML) CUP GTB SCH ×3 (08:14→20:50)
[2017-03-17] MEDS: LEVETIRACETAM 1500 MG (PMX) 100 ML IVPB SCH ×2 (08:14→20:53)
[2017-03-17] MEDS: ATENOLOL 25 MG TAB GTB SCH ×2 (08:15→20:52)
[2017-03-17] MEDS: TOPIRAMATE 25 MG TAB GTB SCH ×2 (08:15→20:51)
[2017-03-17] MEDS: CHOLECALCIFEROL 1,000 UNIT TAB GTB SCH (08:15)
[2017-03-17] MEDS: FAMOTIDINE 20 MG TAB GTB SCH ×2 (08:15→20:50)
[2017-03-17] MEDS: AMLODIPINE 2.5 MG TAB GTB SCH (08:15)
--- NOTE | 2017-03-17 11:55 | PN ---
Date/Time of Note Date/Time of Note DATE: 03/17/17 TIME: 11:52 Assessment/Plan VTE Prophylaxis VTE Prophylaxis Intervention: SCD's Lines/Catheters IV Catheter Type (from Nrs): [place] Urinary Cath still in place: Yes Reason Cath still needed: other (indicate) Assessment/Plan Chief Complaint/Hosp Course 41 yo encephalopathic, intermediate resident male transferred for seizure episodes. 1. Break through Seizure, likely precipitated by subtherapeutic Dilantin level. No further seizures over the last 24hrs -Neuro onboard and seizure meds have been titrated up. Cerebyx+Topamax+Dialntin+ Keppra -Seizure/aspiration precautions. 2. Fever of unknown etiology- most likely likely concurrent. No evidence of infection.Resolved. -No need for abx currently as abx also can alter seizure threshold. F/u cultures. Antipyretics PRN. 3. 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 -Supportive care. 4. Dysphagia with G-tube feeding. -On FiberSource TF. 5. History of respiratory failure previous tracheostomy and closure. Stable saturation in room air. 6. Hypertension. Stable. -Continue home medications 7. Constipation. Stable. -Continue home medications. 8.Hypothyroidism. TSH elevated. T4 WDL Continue Synthroid. Recommend repeat labs in 4-6 weeks as outpatient. 9.Hypokalemia. Resolved DVT prophylaxis: SCDs PUD prophylaxis: Pepcid PLAN: No further seizures. F/u with neuro regarding DC plan . Patient was seen in collaboration with . Problems: Subjective 24 Hr Interval Summary Free Text/Dictation No further seizures. Exam/Review of Systems Vital Signs Vitals Vital Signs Date Time Temp Pulse Resp B/P Pulse Ox O2 Delivery O2 Flow Rate FiO2 03/17/17 08:24 101 03/17/17 08:04 98.0 18 117/74 99 03/14/17 10:35 Room Air Intake and Output 03/16/17 03/16/17 03/17/17 15:00 23:00 07:00 Intake Total 100 ml 1660 ml 1410 ml Output Total 1200 ml 1250 ml Balance 100 ml 460 ml 160 ml Exam General: Chronic ill looking male HEENT: Normocephalic, Atraumatic, No laceration or hematoma; Eyes: PEERL, Conjunctiva clear, Anicteric sclera Neck: Supple without any lymphadenopathy, nontender, no JVD, no carotid bruits, trachea midline, no thyromegaly Cardiac: S1, S2 auscultated, regular rhythm and rate, no mumurs or gallop Pulmonary: Normal respiratory effort. Chest clear to auscultation bilaterally, no adventitious breath sounds GI: With G-tube feed. Abdomen normal to inspection. Soft, non tender, non- distended, no masses, no rebound tenderness or guarding. Bowel sounds active on all four quadrants Genitourinary: Deferred Extremities: Occasional spontaneous movement on BUEs. Otherwise,contracted x 4 Neurologic: Nonverbal with encephalopathy. Skin: Clean,dry, and intact. No ecchymosis, no rashes, or lesions Results Result Diagram: 03/17/17 0643 03/17/17 0643 Results 24 hrs Laboratory Tests Test 03/17/17 06:43 White Blood Count 6.3 Red Blood Count 5.36 Hemoglobin 17.5 Hematocrit 51.3 Mean Corpuscular Volume 95.7 Mean Corpuscular Hemoglobin 32.6 Mean Corpuscular Hemoglobin Concent 34.1 Red Cell Distribution Width 12.3 Platelet Count 203 Mean Platelet Volume 10.9 H Neutrophils % 63.8 Lymphocytes % 22.7 Monocytes % 12.1 H Eosinophils % 0.0 Basophils % 0.3 Nucleated Red Blood Cells % 0.0 Neutrophils # (Manual) 4.0 Lymphocytes # 1.4 Monocytes # 0.8 Eosinophils # 0.0 Basophils # 0.0 Nucleated Red Blood Cells # 0.0 Sodium Level 142 Potassium Level 4.0 Chloride Level 107 Carbon Dioxide Level 25 Anion Gap 14 Blood Urea Nitrogen 11 Creatinine 0.60 L Glucose Level 112 Calcium Level 9.3 Magnesium Level 2.2 Free Thyroxine 0.89 Medications Medications Current Medications Ondansetron HCl (Zofran Inj) 4 mg Q6H PRN IV NAUSEA AND/OR VOMITING; Start 03/14 at 09:30 Morphine Sulfate (morphine) 2 mg Q4H PRN IV SEVERE PAIN LEVEL 7-10; Start at 09:30 Amlodipine Besylate (Norvasc) 2.5 mg DAILY GTB Last administered on 03/17/17t 08:15; Admin Dose 2.5 MG; Start 03/14/17 at 10:00 Atenolol (Tenormin) 25 mg BID GTB Last administered on 03/17/17 08:15; Admin Dose 25 MG; Start 03/14/17 at 10:00 Bisacodyl (Dulcolax Supp) 10 mg Q24H PRN [place] CONSTIPATION; Start 03/14/17 at 09: 30 Cholecalciferol (Vitamin D) 1,000 unit DAILY GTB Last administered on 08:15; Admin Dose 1,000 UNIT; Start 03/15/17 at 09:00 Acetaminophen/ Hydrocodone Bitart ([place] (5/325)) 1 tab Q8 PRN GTB PAIN; Start 03/14/17 at 09:30 Magnesium Hydroxide (Milk Of Mag) 30 ml DAILY PRN GTB CONSTIPATION; Start at 09:30 Sodium Biphosphate/ Sodium Phosphate (Fleet Enema) 118 ml Q48H PRN [place] CONSTIPATION; Start 03/14/17 at 09:30 Trazodone HCl (Desyrel) 25 mg HS GTB Last administered on 03/16/17 20:13; Admin Dose 25 MG; Start 03/14/17 at 21:00 Lorazepam (Ativan) 1 mg Q2H PRN IV SEIZURE Last administered on 03/16/17 12:12 ; Admin Dose 1 MG; Start 03/14/17 at 09:30 Phenytoin (Dilantin Susp Cup) 200 mg TID GTB Last administered on 03/17/17 08: 14; Admin Dose 200 MG; Start 03/14/17 at 13:00 Famotidine 20 mg 20 mg BID GTB Last administered on 03/17/17 08:15; Admin Dose 20 MG; Start 03/14/17 at 21:00 Levetiracetam (Keppra 1,500mg/ 100ml (Pmx)) 100 ml @ 400 mls/hr Q12 IVPB Last administered on 03/17/17 08:14; Admin Dose 400 MLS/HR; Start 03/15/17 at 21:00 Topiramate (Topamax) 75 mg BID GTB Last administered on 03/17/17 08:15; Admin Dose 75 MG; Start 03/16/17 at 21:00 CAMPOS KEYS NP Mar 17, 2017 11:55
--- NOTE | 2017-03-17 16:20 | CONS ---
Date/Time of Note Date/Time of Note DATE: 03/17/17 TIME: 16:18 Consult Date/Type/Reason Admit Date/Time Mar 14, 2017 at 07:23 Initial Consult Date 03/14/17 Type of Consultation: Neurology Reason for Consultation seizures Ordering Provider: CAMPOS KEYS NP Subjective no seizures overnight Objective Vital Signs Date Time Temp Pulse Resp B/P Pulse Ox O2 Delivery O2 Flow Rate FiO2 03/17/17 12:42 98.0 90 18 101/65 98 03/14/17 10:35 Room Air Intake and Output 03/16/17 03/16/17 03/17/17 15:00 23:00 07:00 Intake Total 100 ml 1660 ml 1410 ml Output Total 1200 ml 1250 ml Balance 100 ml 460 ml 160 ml Exam awake alert tracks examiner groans otherwise non-verbal CN: ii-xii intact grossly Motor spastic increased tone throughout Results/Medications Result Diagram: 03/17/17 0643 03/17/17 0643 Results 24 hrs Laboratory Tests Test 03/17/17 06:43 White Blood Count 6.3 Red Blood Count 5.36 Hemoglobin 17.5 Hematocrit 51.3 Mean Corpuscular Volume 95.7 Mean Corpuscular Hemoglobin 32.6 Mean Corpuscular Hemoglobin Concent 34.1 Red Cell Distribution Width 12.3 Platelet Count 203 Mean Platelet Volume 10.9 H Neutrophils % 63.8 Lymphocytes % 22.7 Monocytes % 12.1 H Eosinophils % 0.0 Basophils % 0.3 Nucleated Red Blood Cells % 0.0 Neutrophils # (Manual) 4.0 Lymphocytes # 1.4 Monocytes # 0.8 Eosinophils # 0.0 Basophils # 0.0 Nucleated Red Blood Cells # 0.0 Sodium Level 142 Potassium Level 4.0 Chloride Level 107 Carbon Dioxide Level 25 Anion Gap 14 Blood Urea Nitrogen 11 Creatinine 0.60 L Glucose Level 112 Calcium Level 9.3 Magnesium Level 2.2 Free Thyroxine 0.89 Medications Current Medications Ondansetron HCl (Zofran Inj) 4 mg Q6H PRN IV NAUSEA AND/OR VOMITING; Start 03/14 at 09:30 Morphine Sulfate (morphine) 2 mg Q4H PRN IV SEVERE PAIN LEVEL 7-10; Start at 09:30 Amlodipine Besylate (Norvasc) 2.5 mg DAILY GTB Last administered on 03/17/17t 08:15; Admin Dose 2.5 MG; Start 03/14/17 at 10:00 Atenolol (Tenormin) 25 mg BID GTB Last administered on 03/17/17 08:15; Admin Dose 25 MG; Start 03/14/17 at 10:00 Bisacodyl (Dulcolax Supp) 10 mg Q24H PRN [place] CONSTIPATION; Start 03/14/17 at 09: 30 Cholecalciferol (Vitamin D) 1,000 unit DAILY GTB Last administered on 08:15; Admin Dose 1,000 UNIT; Start 03/15/17 at 09:00 Acetaminophen/ Hydrocodone Bitart ([place] (5/325)) 1 tab Q8 PRN GTB PAIN; Start 03/14/17 at 09:30 Magnesium Hydroxide (Milk Of Mag) 30 ml DAILY PRN GTB CONSTIPATION; Start at 09:30 Sodium Biphosphate/ Sodium Phosphate (Fleet Enema) 118 ml Q48H PRN [place] CONSTIPATION; Start 03/14/17 at 09:30 Trazodone HCl (Desyrel) 25 mg HS GTB Last administered on 03/16/17 20:13; Admin Dose 25 MG; Start 03/14/17 at 21:00 Lorazepam (Ativan) 1 mg Q2H PRN IV SEIZURE Last administered on 03/16/17 12:12 ; Admin Dose 1 MG; Start 03/14/17 at 09:30 Phenytoin (Dilantin Susp Cup) 200 mg TID GTB Last administered on 03/17/17 12: 29; Admin Dose 200 MG; Start 03/14/17 at 13:00 Famotidine 20 mg 20 mg BID GTB Last administered on 03/17/17 08:15; Admin Dose 20 MG; Start 03/14/17 at 21:00 Levetiracetam (Keppra 1,500mg/ 100ml (Pmx)) 100 ml @ 400 mls/hr Q12 IVPB Last administered on 03/17/17 08:14; Admin Dose 400 MLS/HR; Start 03/15/17 at 21:00 Topiramate (Topamax) 75 mg BID GTB Last administered on 03/17/17 08:15; Admin Dose 75 MG; Start 03/16/17 at 21:00 Assessment/Plan Chief Complaint/Hosp Course 41 year old male quadriplegic with seizure d/o with G- Tube admitted with breakthrough seizures sub-therapeutic dilantin level. Level today 9.8 Recommendations: -c/w Phenytoin 200 mg TID -Keppra increased to 1500 mg BID -Topamax increased today to 75 mg BID -ativan prn for further seizure activity max 4 mg at once , max 10 mg in 24 hours -seizure precautions if he remains seizure free overnight plan for dc tomorrow with close follow up with his neurologist Problems: CED CALDWELL MD Mar 17, 2017 16:19
[2017-03-17] MEDS: traZODone 50 MG TAB GTB SCH (20:50)
[2017-03-18] VITALS (9 sets, daily range): BP systolic 115–140; BP diastolic 70–88; PULSE 80–110; RESP 18–19
[2017-03-18] MEDS: LEVOTHYROXINE 75 MCG TAB GTB SCH (06:00)
[2017-03-18] MEDS: PHENYTOIN (100 MG/4 ML) CUP GTB SCH ×2 (09:09→13:40)
[2017-03-18] MEDS: FAMOTIDINE 20 MG TAB GTB SCH (09:09)
[2017-03-18] MEDS: LEVETIRACETAM 1500 MG (PMX) 100 ML IVPB SCH (09:10)
[2017-03-18] MEDS: ATENOLOL 25 MG TAB GTB SCH (09:10)
[2017-03-18] MEDS: AMLODIPINE 2.5 MG TAB GTB SCH (09:10)
[2017-03-18] MEDS: CHOLECALCIFEROL 1,000 UNIT TAB GTB SCH (09:10)
[2017-03-18] MEDS: TOPIRAMATE 25 MG TAB GTB SCH (09:27)
--- NOTE | 2017-03-18 09:59 | PDOCDIS ---
Discharge Instructions CONDITION Patient Condition: Stable HOME CARE INSTRUCTIONS: Special Diet: FIBERSOURCE GTUBE FEED 80ML/HRYour diet recommendation is: WATER FLUSH 150 ML Q 6H REFERRALS Other Referrals Follow-up with outpatient neurologist in 1-2 weeks CAMPOS KEYS NP Mar 18, 2017 09:59
[2017-03-18] MEDS ORDERED: TOPI25TA38 GTB (10:05)
[2017-03-18] MEDS ORDERED: LORA-441 IM (10:05)
[2017-03-18] MEDS ORDERED: ACET-2047 PO (10:05)
[2017-03-18] MEDS ORDERED: LEVE100018 PO (10:05)
[2017-03-18] MEDS ORDERED: PHEN100O4 GTB (10:05)
--- NOTE | 2017-03-18 16:07 | DS ---
Date/Time of Note Date/Time of Note DATE: 03/18/17 TIME: 15:54 Discharge Summary Admission/Discharge Info Admit Date/Time Mar 14, 2017 at 07:23 Discharge Date/Time Discharge Diagnosis 1. Break through Seizure, likely precipitated by subtherapeutic Dilantin level. No further seizures 2. Fever of unknown etiology- most likely likely concurrent. No evidence of infection.Resolved. 3. 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 4. Dysphagia with G-tube feeding. 5. History of respiratory failure previous tracheostomy and closure. 6. Hypertension. Stable. 7. Constipation. 8.Hypothyroidism. 9.Hypokalemia. Resolved Patient Condition: Stable Consults ,Neuro Procedures 03/14/2017. Brain CT. IMPRESSION: 1. No acute intracranial abnormality. No intracranial hemorrhage, extra-axial fluid collection, mass lesion or hydrocephalous. 2. Moderate peripheral and central cerebral volume loss. 3. Mild periventricular and subcortical white matter hypodensity, likely related to chronic microangiopathic changes. 03/14/2017. EEG MPRESSION: Abnormal study secondary to presence of more or less rhythmical every half seconds to every few seconds sharp waves with triphasic morphology with some right-sided predominance, but at times generalized. This activity given patient's history of seizures could be epileptogenic and correlation with imaging predominantly right frontotemporal central areas is advisable. The patient 's clinical history otherwise unknown to me. If he has any abnormalities which could produce triphasic waves, such as hepatic encephalopathy or uremic encephalopathy please correlate as well. Clearly antiepileptic coverage is advisable. Again described activity does not reflect ongoing generalized electrographic seizures. Hx of Present Illness This is a very unfortunate 41-year-old nonverbal alf resident with a past medical history of traumatic brain injury followed by anoxic encephalopathy and quadriplegia, G-tube feeding, respiratory failure and tracheostomy which is now closed, seizure disorders, who was brought to the emergency room from [facility] for seizure activity lasted for 2 minutes. In the emergency room, patient was noted with a subtherapeutic Dilantin level and was treated with a loading dose of Dilantin 500 mg IV and 1000 mg IV Keppra. There was no further seizure activities in the emergency room and the plan was to send patient back to longterm facility. However, patient developed a fever with a temperature of 101.3 and heart rate 111. Therefore, patient was treated with antibiotics and was admitted for further evaluation. Hospital Course Brain CT was negative for any acute intracranial abnormality. EEG was with epileptic activities. Patient was evaluated by neurology. He continued to have seizures. Medications titrated up to Keppra 1500 mg twice daily, Topamax 75 mg twice daily and Dilantin 200 mg 3 times daily. He was kept on seizure and aspiration precaution. Dilantin level was monitored and remained at therapeutic level. There was no further seizures. Infectious workup was negative for any possible underlying infection. He did not require any antibiotics. Patient was tolerating tube feeding. She did not have any leukocytosis or further fevers. He remained at his baseline status. Electrolyte levels were monitored closely and repleted as indicated. He was continued on his home medications. At this time, there is no further workup indicated as patient did not have any further seizures. As per neurology recommendation, patient is medically stable for discharge back to longterm facility. Case management for arranging transfer. Disposition: Patient will be discharged to longterm facility with patient of adjusted dose of seizure medications. Approximately 60 minutes was spent in coordinating the discharge on this patient. [facility] Lorazepam* (Ativan*) 0.5 Mg Tablet, 1 MG IM Q4H Y for SEIZURES, #30 VIAL Prov:CAMPOS KEYS V. GENERAL OFFICE ASSISTANT 03/18/17 Acetaminophen* (Acetaminophen*) 650 Mg Tablet, 650 MG PO Q6H Y for PAIN AND OR ELEVATED TEMP, #30 TAB Prov:KEYSCAMPOS BAILEY V. GENERAL OFFICE ASSISTANT 03/18/17 Levetiracetam* (Keppra*) 1,000 Mg Tablet, 1500 MG PO BID, #60 TAB Prov:KEYSCAMPOS BAILEY NP 03/18/17 Topiramate* (Topamax*) 25 Mg Tablet, 75 MG GTB BID, #90 TAB Prov:CAMPOS KEYS V. GENERAL OFFICE ASSISTANT 03/18/17 Phenytoin* (Dilantin* Susp) 100 Mg/4 Ml Oral.susp, 200 MG GTB TID, #90 TAB Prov:KEYSCAMPOS BAILEY V. GENERAL OFFICE ASSISTANT 03/18/17 Reported Medications Levothyroxine Sodium* (Levoxyl*) 75 Mcg Tablet, 75 MCG GTB BEFORE BREAKFAST, # 30 TAB 03/11/17 Cholecalciferol (Vitamin D3) 1,000 Unit Capsule, 1000 UNIT GTB DAILY, CAP 03/11/17 Amlodipine Besylate* (Amlodipine Besylate*) 2.5 Mg Tablet, 2.5 MG GTB DAILY, # 30 TAB 03/11/17 Trazodone Hcl* (Trazodone Hcl*) 50 Mg Tablet, 25 MG GTB HS, TAB 05/04/15 Hydrocodone Bit-Acetaminophen* ([place]*) 5-325 Mg Tab, 1 TAB GTB Q8 Y for PAIN, TAB 05/04/15 Magnesium Hydroxide* (Milk Of Magnesia*) 400 Mg/5 Ml Oral.susp, 30 ML GTB DAILY Y for CONSTIPATION, ML 05/04/15 Na Phos,M-B/Na Phos,Di-Ba* (Fleet* Enema) 118 Ml Enema, 118 ML [place] Q48H Y for CONSTIPATION, ENEMA 05/04/15 Bisacodyl* (Dulcolax*) 10 Mg/Supp.rect Supp.rect, 10 MG [place] Q24H Y for CONSTIPATION, SUPP.RECT 05/04/15 Cranberry Extract (Cranberry) 425 Mg Capsule, 425 MG GTB TID 05/04/15 Docusate Sodium* (Colace*) 100 Mg Capsule, 200 MG GTB QHS, CAP 05/04/15 Atenolol* (Atenolol*) 25 Mg Tablet, 25 MG GTB BID, TAB 05/04/15 Discontinued Reported Medications Acetaminophen* (Acetaminophen*) 500 MG Extra Strength Tablet, 1000 MG PO Q4 Y for MODERATE PAIN LEVEL 4-6, TAB 03/11/17 Acetaminophen* (Acetaminophen*) 650 Mg Tablet, 650 MG GTB Q4 Y for MILD PAIN LEVEL 1-3, #30 TAB 03/11/17 Levetiracetam* (Keppra* (Ped)) 100 Mg/Ml Liq, 1000 MG GTB BID for 30 Days, BOTTLE 03/11/17 Topiramate* (Topamax*) 25 Mg Tablet, 25 MG GTB BID, TAB 03/11/17 Acetaminophen* (Acetaminophen*) 650 Mg Tablet, 650 MG GTB BID Y for PAIN AND OR ELEVATED TEMP, TAB 05/04/15 Lorazepam* (Lorazepam*) 1 Mg Tablet, 1 MG IM* Q6 Y for SEIZURES, TAB 05/04/15 Acetaminophen* (Acetaminophen*) 500 MG Extra Strength Tablet, 500 MG GTB Q4H Y for PAIN AND OR ELEVATED TEMP, TAB 05/04/15 Acetaminophen* (Acetaminophen*) 650 Mg Tablet, 650 MG GTB Q6 Y for PAIN AND OR ELEVATED TEMP, TAB 05/04/15 Levothyroxine Sodium* (Synthroid*) 150 Mcg Tablet, 150 MCG GTB AC BREAKFAST, TAB 05/04/15 Levetiracetam* (Keppra* (Ped)) 100 Mg/Ml Liq, 500 MG GTB BID for 30 Days, BOTTLE 05/04/15 Phenytoin* (Dilantin* Susp) 100 Mg/4 Ml Oral.susp, 300 MG GTB DAILY for 30 Days , BOTTLE 05/04/15 Follow-up Plan CONDITION Patient Condition: Stable HOME CARE INSTRUCTIONS: Special Diet: FIBERSOURCE GTUBE FEED 80ML/HRYour diet recommendation is: WATER FLUSH 150 ML Q 6H REFERRALS Other Referrals Follow-up with outpatient neurologist in 1-2 weeks Other orders Seizure/aspiration precaution Primary Care Provider MD LUDMILA Clark VIDYA V. NP Mar 18, 2017 16:05
== END 2017-03-18 17:40 | DRG 100 ==
LOC: E/R 23:37 → MS2 03-14 07:23 → MS4 03-14 10:45
PROVIDERS: ADMIT Family Medicine; ATTEND Family Medicine
PROC: 4A00X4Z Measurement of Central Nervous Electrical Activity, External Approach (ICD-10-PCS; principal; 2017-03-14)
DX: G40.909 Epilepsy, unspecified, not intractable, without status epilepticus (principal); G82.50 Quadriplegia, unspecified; G93.1 Anoxic brain damage, not elsewhere classified; R65.10 Systemic inflammatory response syndrome (SIRS) of non-infectious origin without acute organ dysfunction; R13.10 Dysphagia, unspecified; Z93.1 Gastrostomy status; E03.9 Hypothyroidism, unspecified; K59.00 Constipation, unspecified; I10 Essential (primary) hypertension; Z87.820 Personal history of traumatic brain injury; E87.6 Hypokalemia; R89.2 Abnormal level of other drugs, medicaments and biological substances in specimens from other organs, systems and tissues
CPT/HCPCS: 36415; 70450; 71010; 80048; 80053; 80061; 80185; 81003; 82962; 83036; 83605; 83735; 84100; 84439; 84443; 85025; 87040; 87086; 95819; 96365; 96366; 96367; J0692; J1165; J1953; J2060; J7030; J7040; Q2009

== ENCOUNTER 2017-04-18 13:07 | Emergency (ER) | payer OTHER ==
[~2017-04-18] VITALS: Ht 182.9 cm; Wt 72.7 kg
[~2017-04-18 13:07] MED LIST changes: -ACET-141 PO; -ACET-2047 GTB; +ACET-2047 PO; -CRAN425C GTB; +CRAN425C2 GTB; -KEP100S GTB; +LEVE100018 PO; +LORA-441 IM; -LORA1TAB IM*; +PHEN100O4 GTB; -TOPI25TA38 GTB; +TOPI25TA51 GTB
[2017-04-18] MEDS ORDERED: SOD CHLORIDE 0.9% 1,000 ML IV STA (13:21)
[2017-04-18] MEDS ORDERED: LEVETIRACETAM 1000 MG (PMX) 100 ML IVPB STA (13:21)
[2017-04-18 14:05] VITALS: Ht 182.9 cm; Wt 72.7 kg
[2017-04-18 14:25] LABS: BASOPHILS % 0.1 % (0.0-2.0); HEMATOCRIT 46.6 % (42.0-52.0); HEMOGLOBIN 16.7 g/dl (14.0-18.0); LYMPHOCYTES % 14.6 % (15.0-51.0); MEAN CORPUSCULAR HEMOGLOBIN 33.5 pg (29.0-33.0); MEAN CORPUSCULAR HGB CONC 35.8 g/dl (32.0-37.0); MEAN CORPUSCULAR VOLUME 93.6 fl (82.0-101.0); MEAN PLATELET VOLUME 9.8 fl (7.4-10.4); MONOCYTE # 0.6 10^3/ul (0.3-0.9); MONOCYTES % 8.7 % (0.0-11.0); NEUTROPHIL # 5.3 10^3/ul (1.6-7.5); NEUTROPHILS % 76.2 % (39.0-77.0); PLATELET COUNT 273 10^3/UL (140-415); RED BLOOD COUNT 4.98 10^6/ul (4.70-6.10); RED CELL DISTRIBUTION WIDTH 11.9 % (11.5-14.5)
[2017-04-18 14:45] LABS: ANION GAP 15 (8-16); BLOOD UREA NITROGEN 14 mg/dl (7-20); CALCIUM 9.1 mg/dl (8.4-10.2); CARBON DIOXIDE 24 mmol/L (21-31); CHLORIDE 110 mmol/L (97-110); GLUCOSE 105 mg/dl (70-220); POTASSIUM 4.1 mmol/L (3.5-5.1); SODIUM 145 mmol/L (135-144)
--- NOTE | 2017-04-18 15:08 | ERA ---
ER Documentation Chief Complaint Date/Time DATE: 04/18/17 TIME: 15:00 Chief Complaint BROUGHT IN VIA EMS DUE TO SEIZURE ACTIVITY HPI This 41-year-old male presents with sinus asthmaticus. He apparently had a grand mal seizure at his facility. Patient was in his bed in no trauma was noted by staff. While paramedics were in transport he had another generalized tonic-clonic seizure lasting several minutes with which the paramedics aborted with Versed. Patient's mental status is not known as he is nonverbal at baseline following a head injury in the distant past. Reportedly family recently insisted that the patient's seizure medicines be decreased so he can be more alert. Was on Dilantin, Topamax and Keppra according to his medication list that I reviewed. ROS Unobtainable Medications Home Meds Active Scripts Lorazepam* (Ativan*) 0.5 Mg Tablet, 1 MG IM Q4H Y for SEIZURES, #30 VIAL Prov:KEYSCAMPOS V. MSWS 03/18/17 Acetaminophen* (Acetaminophen*) 650 Mg Tablet, 650 MG PO Q6H Y for PAIN AND OR ELEVATED TEMP, #30 TAB Prov:KEYSCAMPOS V. MSWS 03/18/17 Levetiracetam* (Keppra*) 1,000 Mg Tablet, 1500 MG PO BID, #60 TAB Prov:KEYSMARK BAILEYA V. MSWS 03/18/17 Topiramate* (Topamax*) 25 Mg Tablet, 75 MG GTB BID, #90 TAB Prov:KEYSCHERYLCAMPOS V. MSWS 03/18/17 Phenytoin* (Dilantin* Susp) 100 Mg/4 Ml Oral.susp, 200 MG GTB TID, #90 TAB Prov:KEYSMARKA V. MSWS 03/18/17 Reported Medications Levothyroxine Sodium* (Levoxyl*) 75 Mcg Tablet, 75 MCG GTB BEFORE BREAKFAST, # 30 TAB 03/11/17 Cholecalciferol (Vitamin D3) 1,000 Unit Capsule, 1000 UNIT GTB DAILY, CAP 03/11/17 Amlodipine Besylate* (Amlodipine Besylate*) 2.5 Mg Tablet, 2.5 MG GTB DAILY, # 30 TAB 03/11/17 Trazodone Hcl* (Trazodone Hcl*) 50 Mg Tablet, 25 MG GTB HS, TAB 05/04/15 Hydrocodone Bit-Acetaminophen* (Aurora*) 5-325 Mg Tab, 1 TAB GTB Q8 Y for PAIN, TAB 05/04/15 Magnesium Hydroxide* (Milk Of Magnesia*) 400 Mg/5 Ml Oral.susp, 30 ML GTB DAILY Y for CONSTIPATION, ML 05/04/15 Na Phos,M-B/Na Phos,Di-Ba* (Fleet* Enema) 118 Ml Enema, 118 ML CA Q48H Y for CONSTIPATION, ENEMA 05/04/15 Bisacodyl* (Dulcolax*) 10 Mg/Supp.rect Supp.rect, 10 MG CA Q24H Y for CONSTIPATION, SUPP.RECT 05/04/15 Cranberry Extract (Cranberry) 425 Mg Capsule, 425 MG GTB TID 05/04/15 Docusate Sodium* (Colace*) 100 Mg Capsule, 200 MG GTB QHS, CAP 05/04/15 Atenolol* (Atenolol*) 25 Mg Tablet, 25 MG GTB BID, TAB 05/04/15 Allergies Allergies: Coded Allergies: No Known Drug Allergy (Verified Allergy, Intermediate, NONE, 04/18/17) PMhx/Soc History of Surgery: Yes (FOREIGN BODY REMOVED FROM BODY) Anesthesia Reaction: No Hx Neurological Disorder: Yes (ENCEPHALOPATHY, SEIZURES) Hx Respiratory Disorders: No Hx Cardiac Disorders: No Hx Psychiatric Problems: Yes (DEPRESSION) Hx Miscellaneous Medical Probl: No Hx Alcohol Use: Yes Hx Substance Use: No Hx Tobacco Use: Yes Smoking Status: Never smoker Physical Exam Vitals Vital Signs Date Time Temp Pulse Resp B/P Pulse Ox O2 Delivery O2 Flow Rate FiO2 04/18/17 14:05 98.5 105 18 121/85 100 Physical Exam Const: [] No distress Head: Atraumatic Eyes: Normal Conjunctiva, the pupils are equal and reactive to light ENT: Normal External Ears, Nose and Mouth. No tongue lesions or bleeding. Neck: No deformities Resp: Clear to auscultation bilaterally Cardio: Mild regular tachycardia, no murmurs Abd: Soft, no apparent tenderness, non distended. Normal bowel sounds Skin: No petechiae or rashes Ext: No cyanosis, or edema distal pulses intact. Some atrophy of extremities noted. Neur: Patient is unconscious with eyes maintaining closed, no apparent response to pain. Deep tendon reflexes of patella positive. Result Diagram: 04/18/17 1405 04/18/17 1405 Results 24 hrs Laboratory Tests Test 04/18/17 14:05 White Blood Count 7.010^3/ul Red Blood Count 4.9810^6/ul Hemoglobin 16.7g/dl Hematocrit 46.6% Mean Corpuscular Volume 93.6fl Mean Corpuscular Hemoglobin 33.5pg Mean Corpuscular Hemoglobin Concent 35.8g/dl Red Cell Distribution Width 11.9% Platelet Count 75558^3/UL Mean Platelet Volume 9.8fl Neutrophils % 76.2% Lymphocytes % 14.6% Monocytes % 8.7% Eosinophils % 0.0% Basophils % 0.1% Nucleated Red Blood Cells % 0.0/100WBC Neutrophils # 5.310^3/ul Lymphocytes # 1.010^3/ul Monocytes # 0.610^3/ul Eosinophils # 0.010^3/ul Basophils # 0.010^3/ul Nucleated Red Blood Cells # 0.010^3/ul Sodium Level 145mmol/L Potassium Level 4.1mmol/L Chloride Level 110mmol/L Carbon Dioxide Level 24mmol/L Anion Gap 15 Blood Urea Nitrogen 14mg/dl Creatinine 0.60mg/dl Glucose Level 105mg/dl Calcium Level 9.1mg/dl Phenytoin (Dilantin) Level < 3.0ug/ml Current Medications Medications (Trade) Dose Ordered Sig/Nahomy Route PRN Reason Start Time Stop Time Status Last Admin Dose Admin Sodium Chloride 1,000 ml @ 1,000 mls/hr Q1H STAT IV 04/18/17 13:21 04/18/17 14:20 DC Levetiracetam (Keppra 1,000mg/ 100ml (Pmx)) 100 ml @ 400 mls/hr ONCE STAT IVPB 04/18/17 13:21 04/18/17 13:35 DC Procedures/MDM 41-year-old male with apparent recurrent seizures today. He was loaded with a gram of Keppra immediately to prevent further seizures and diagnosis of status epilepticus. Is also given a liter of normal saline hydration. Thiamine level is subtherapeutic and perhaps decreasing the patient's medications was the reason for his breakthrough seizure. As patient does have a seizure disorder history and recently decreased medications I do not believe that he would benefit from CAT scan imaging of his brain in the emergency room as I reviewed his EMR and see that he had a CAT scan last month.. Initial sinus tachycardia resolved. No elevated white count to suggest current infection although urine is still pending. No signs of dehydration. Departure Diagnosis: Primary Impression: Seizure disorder Condition: QUOC George DO Apr 18, 2017 15:08
[2017-04-18] MEDS ORDERED: VIT500LI GTB (15:14)
[2017-04-18] MEDS ORDERED: ZINC220T GTB (15:15)
[2017-04-18] MEDS ORDERED: LORA2DIS2 IJ (15:18)
[2017-04-18] MEDS ORDERED: LIOT25TA3 GTB (15:19)
[2017-04-18] MEDS ORDERED: LEVO100T87 GTB (15:26)
[2017-04-18] MEDS ORDERED: METO-448 GTB (15:26)
[2017-04-18] MEDS ORDERED: LEVE10006 GTB (15:28)
[2017-04-18] MEDS ORDERED: TOPI100T42 GTB (15:29)
[2017-04-18] MEDS ORDERED: TRAZ50TA18 PO (15:30)
[2017-04-18] MEDS ORDERED: ACET325T33 GTB (15:36)
[2017-04-18] MEDS ORDERED: TYL500 GTB ×2 (15:36)
== END 2017-04-18 16:00 | disposition short-term general hospital (02) ==
LOC: E/R 13:07
DX: G40.909 Epilepsy, unspecified, not intractable, without status epilepticus (principal); R40.2142 Coma scale, eyes open, spontaneous, at arrival to emergency department; R40.2212 Coma scale, best verbal response, none, at arrival to emergency department; R40.2312 Coma scale, best motor response, none, at arrival to emergency department; Z87.891 Personal history of nicotine dependence
CPT/HCPCS: 36415; 80048; 80185; 85025; 96374; J1953; J7030; Z7502